=== PATIENT | female | born 1960 | race Caucasian/White ===

== ENCOUNTER 2019-06-17 10:26 | Inpatient (IN) ==
[2019-06-17 11:31] LABS: INR 1.04; PROTIME 13.7 Seconds (11.0-16.0)
[2019-06-17 12:00] LABS: BASO# 0.06 X1000 (0.0-0.2); BASO% 0.5 % (0.0-0.8); EOS# 0.15 X1000 (0.0-0.7); EOS% 1.3 % (0.0-10.0); HEMATOCRIT 20.1 % (37.0-47.0); HEMOGLOBIN 5.6 g/dL (12.0-16.0); IMM GRAN# 0.06 X1000 (0.0-0.04); IMM GRAN% 0.5 % (0.0-0.5); LYMPH# 1.23 X1000 (1.2-3.4); LYMPH% 10.9 % (20.5-51.1); MCH 24.3 PG (27-31); MCHC 27.9 g/dL (33-37); MCV 87.4 FL (81-99); MONO# 0.95 X1000 (0.11-0.59); MONO% 8.4 % (1.7-9.3); MPV 11.5 FL (7.4-10.4); NEUT# 8.85 X1000 (1.4-6.5); NEUT% 78.4 % (42.2-75.2); PLT 308 X1000 (130-400); RDW 18.4 % (11.5-14.5)
[2019-06-17 12:04] LABS: PTT HEPARIN PROTOCOL 23.4 Seconds
[2019-06-17 12:06] LABS: ALB/GLOB RATIO 1.3; ALBUMIN 3.9 g/dL (3.5-5.0); CALCIUM 10.2 mg/dL (8.8-10.2); CREATININE 1.8 mg/dL (0.5-0.9); POTASSIUM 4.4 mmol/L (3.5-5.1); TOTAL BILIRUBIN 0.27 mg/dL (0.20-1.00)
[2019-06-17 12:12] LABS: ANISOCYTOSIS 2+; BANDS 4 % (0-1); HYPOCHROM 1+; LARGE PLATELETS 1+; LYMPHS 8 % (21-51); MONO 4 % (1-9); NRBC 1 % (0-0); POIKILOCYTOSIS 1+; POLYCHROM 1+; SEGS 84 % (42-75)
[2019-06-17 12:17] LABS: URINE SOURCE CLEAN CATCH
[2019-06-17] MEDS ORDERED: NS 500 ML IV ONE (12:17)
[2019-06-17 12:20] LABS: BILIRUBIN URINE NEGATIVE (NEGATIVE); BLOOD URINE NEGATIVE (NEGATIVE); COLOR STRAW; GLUCOSE URINE NEGATIVE (NEGATIVE); KETONE URINE NEGATIVE (NEGATIVE); LEUKOCYTES URINE NEGATIVE (NEGATIVE); NITRITE URINE NEGATIVE (NEGATIVE); PROTEIN URINE NEGATIVE (NEGATIVE); SP GRAVITY URINE 1.006; TURBIDITY URINE CLEAR (CLEAR); UROBILINOGEN URINE NORMAL (NORMAL)
[2019-06-17 12:21] LABS: UR EPITHELIAL CELLS <10 /HPF (<10); URINE BACTERIA NEGATIVE /HPF; URINE RBC <10 /HPF (<10); URINE WBC <10 /HPF (<10)
--- NOTE | 2019-06-17 14:40 | PROVIDER DOCUMENTATION ---
This chart was entered by Yvette Kent Scribe, acting as scribe for Norberto Jacobs MD. HPI-Abdominal Pain/GI Problem - General Stated Complaint: gi bleed/diarrhea Time Seen by Provider: 06/17/19 10:35 Source: patient, EMS ([facility]) Allergies/Adverse Reactions: Patient Allergies Allergy/AdvReac Type Severity Reaction Status Date / Time No Known Allergies Allergy Verified 06/17/19 15:14 Home Medications: Home Medication List Medication Instructions Recorded Confirmed Last Taken Type Albuterol Sulfate [Proair Hfa] 1 - 2 puff INH Q6H PRN PRN 06/17/19 06/17/19 Unknown History Aspirin 325 mg PO DAILY 06/17/19 06/17/19 06/17/19 History Calcitriol 0.25 mg PO DAILY 06/17/19 06/17/19 06/17/19 History Cholecalciferol (Vit D3) [Vitamin 2,000 unit PO DAILY 06/17/19 06/17/19 06/17/19 History D] Furosemide [Lasix] 20 mg PO DAILY 06/17/19 06/17/19 06/17/19 History Metoprolol Succinate 150 mg PO DAILY 06/17/19 06/17/19 06/17/19 History Montelukast Sodium [Singulair] 10 mg PO DAILY 06/17/19 06/17/19 06/17/19 History Omeprazole 20 mg PO DAILY 06/17/19 06/17/19 06/17/19 History Potassium Chloride 10 meq PO DAILY 06/17/19 06/17/19 06/17/19 History Sennosides [Senna Laxative] 8.6 mg PO PRN PRN 06/17/19 06/17/19 06/17/19 History Simvastatin 20 mg PO HS 06/17/19 06/17/19 06/16/19 History - History of Present Illness-ABD Nature of Presenting Problems: 58 yof [facility] with c/o diarrhea and intermittent dark tarry stool acute onset 1 week. pt sts has no hx of GI bleed in the past and denies abd pain. pt is nontoxic in appearance and in no distress Quality of Pain: reports: none Severity in ED: reports: mild Onset/Duration: reports: 1 week ago Timing: reports: still present, intermittent Activities at Onset: reports: light activity Exposure to sick contacts?: No Modifying Factors: improves with: nothing. worse with: defecating Associated Symptoms: reports: diarrhea. denies: back/neck pain, chest pain, fever/chills, loss of appetite, nausea, shortness of breath, swelling/mass in abdomen, vomiting Last BM: this morning Dark Stools Present?: reports: black, tarry Rectal Bleeding: reports: blood mixed with stool # of Diarrhea Episodes: 2 Rectal Pain: reports: none # of Vomiting Episodes: 0 Emesis Description: reports: none Bruising or Bleeding Gums?: No Similar Symptoms Previously?: No Recently seen or treated by another doctor?: No Review of Systems - Adult - REVIEW OF SYSTEMS - ADULT Constitutional: denies: chills, fever Eyes: reports: no symptoms reported Ears, Nose, Mouth & Throat: reports: no symptoms reported Cardiovascular: denies: chest pain, palpitations Respiratory: denies: cough, shortness of breath, wheezing Gastrointestinal: reports: see HPI, diarrhea, rectal bleeding. denies: abdominal pain, nausea, vomiting Genitourinary: reports: no symptoms reported Musculoskeletal: denies: back pain, neck pain Integumentary: reports: no symptoms reported Neurological: reports: no symptoms reported Psychiatric: reports: no symptoms reported Endocrine: reports: no symptoms reported Hematologic/Lymphatic: reports: no symptoms reported Allergic/Immunologic: reports: no symptoms reported All Other Systems: Reviewed and Negative Past History - Adult - PAST MEDICAL HISTORY-ADULT Review of Records: reports: Old Records Reviewed, Nursing Assessment Review, Medications Reviewed, Social history reviewed & non-contributory. Major Childhood Illnesses: reports: denies history Cardiovascular: reports: HTN Respiratory: reports: denies history Gastrointestinal: reports: diverticulosis Obstetrical/Gynecological: reports: denies history Genitourinary: reports: denies history Musculoskeletal: reports: denies history Neurological: reports: denies history Psychiatric: reports: denies history Endocrine/Immune: reports: denies history Other Conditions: reports: denies history - PRIOR SURGERIES/PROCEDURES Surgical/Procedure History: reports: reviewed, not pertinent - IMMUNIZATION STATUS Childhood Immunizations: See Nurse Assessment Flu Vaccine: See Nurse Assessment - FAMILY HISTORY Family History: reviewed, not pertinent - SOCIAL HISTORY Smoking: denies Substance Use: denies Living Situation: care facility Physical Exam-General - PHYSICAL EXAM-ADULT Initial Vital Signs Reviewed: Yes - CONSTITUTIONAL General Appearance: appears well, alert, no apparent distress - EYES Eyes: PERRL/EOMI, pale conjunctivae - HEAD, EARS, NOSE, MOUTH & THROAT HENMT: moist mucous membranes - NECK Neck: non-tender, full range of motion, supple, normal inspection - RESPIRATORY Respiratory: chest non-tender, lungs clear, normal breath sounds - CARDIOVASCULAR Cardiovascular: normal peripheral pulses, regular rate, rhythm - CHEST (BREASTS) Chest/Breast: deferred - GASTROINTESTINAL (ABDOMEN) Abdominal Exam: normal bowel sounds, non tender, soft, no organomegaly, no pulsatile mass - GENITOURINARY Female Genitalia/Pelvic Exam: deferred Rectal Exam: normal rectal tone, black stool Hemoccult Exam: heme positive stool - LYMPHATIC Lymphatic: no adenopathy - MUSCULOSKELETAL Back Exam: normal inspection, no CVA tenderness, no vertebral tenderness Extremity: normal range of motion, non-tender, normal gait, normal inspection - SKIN Integumentary: normal turgor, warm/dry, pallor - NEUROLOGIC Neurologic: grossly normal - PSYCHIATRIC Psych/Mental Status: normal mood/affect, normal thought content, normal thought process, oriented x 3 Progress - PLAN OF CARE/RESULTS Progress/Plan/Lab Results: Orders Category Date Time Status CBC WITH ELECTRONIC DIFF [HEME] Stat Lab 06/17/19 10:37 Uncollected COMPREHENSIVE METABOLIC PANEL [CHEM] Stat Lab 06/17/19 10:37 Uncollected PT [PROTIME WITH INR] [COAG] Stat Lab 06/17/19 10:37 Uncollected PTT HEPARIN PROTOCOL [COAG] Stat Lab 06/17/19 10:37 Uncollected URINALYSIS W/POSS RFLX CULT [URINALYSIS] Stat Lab 06/17/19 10:37 Uncollected Result Diagrams: 06/17/19 11:03 06/17/19 11:03 - REASSESSMENT Reassessment #1 Time Reassessed: 12:12 ( at bedside speaking with pt) Status: unchanged Reassessment #2 Time Reassessed: 13:02 ( at bedside) Status: unchanged - CONSULTS/PCP/HOSPITALIST Notification #1 *Consult/PCP/Hospitalist*: hospitalist Time Discussed: 13:19 Consult Disposition: Will see in ED, Admit Departure - Departure Date of Disposition Decision: 06/17/19 Time of Disposition Decision: 14:38 DIAGNOSIS: Anemia, GI bleeding, Renal insufficiency Disposition: ADMITTED INPATIENT 09 Certified Medical Emergency: Emergent Condition: Fair - Critical Care Note This patient required my direct & personal management of CC.: Yes Total Time (mins): 38 Critical Care Statement: This patient required my direct personal management to treat or rule out processes, the absence of which, could potentiallly result in sudden, clinically significant life or limb threatening deterioration. Attestation - Physician/ JONH Attestation Patient care was provided by Advanced Practice Provider:: No The physician spent face to face time with patient:: Yes Advanced Practice Provider documentation review:: Supervising physician onsite and consulted in the evaluation and care of this patient. The physician did have a face to face encounter with the patient. This chart was documented by the indicated scribe, (Yvette Kent Scribe) and accurately reflects the services I performed and decisions made by me, Norberto Jacobs MD, as attested by the provider's signature.
[2019-06-17] MEDS ORDERED: ZOFRAN IV PRN (14:43)
[2019-06-17] MEDS ORDERED: TYLENOL PO PRN (14:43)
[2019-06-17] MEDS ORDERED: NS 500 ML ONE (14:57)
[2019-06-17 15:09] LABS: IRON SATURATION 7 %; TIBC 352 ug/dL; TOTAL IRON 24 ug/dL (49-151); UNBOUND IRON 328 ug/dL (112-346)
[2019-06-17 15:28] LABS: FERRITIN 75 ng/mL (13-150)
[2019-06-17] MEDS: SODIUM CHLORIDE 0.9% INJ SCH (17:56)
[2019-06-17] MEDS: PROTONIX IV SCH (17:56)
--- NOTE | 2019-06-17 19:06 | HISTORY AND PHYSICAL ---
PRIMARY CARE PHYSICIAN: None. CHIEF COMPLAINT: Dark tarry stools mixed with dark red blood, rectal bleeding. No energy, fatigue. This has been present for about a week and has progressively worsened. HISTORY OF PRESENTING ILLNESS: This is a 58-year-old female who presents to [facility] with complaints of diarrhea, dark tarry stools with dark red rectal bleeding mixed in with the stool over the past week. States she has had decreased energy and fatigue that has progressively worsened. Workup in the emergency room showed an hemoglobin and hematocrit of 5.6 and 20.1. It is noted that she is not on any anticoagulation or any blood lowering medications. She has not taken any NSAIDs or Goody powders according to the patient. Her stool for occult blood was positive in the emergency room, so she will receive 2 units of packed red blood cells and she will be admitted with GI consultation for further evaluation and treatment. PAST MEDICAL HISTORY: Hypertension, chronic kidney disease, and diverticulitis. PAST SURGICAL HISTORY: Of a hysterectomy, tonsillectomy and a parathyroidectomy. FAMILY HISTORY: Reviewed and noncontributory. SOCIAL HISTORY: She currently lives at the [facility]. Denies any tobacco, alcohol or illicit drug use. ALLERGIES: No known drug allergies. HOME MEDICATIONS: We will need to obtain a current list, reconcile, review and restart as appropriate. Placed an order for nursing to update and confirm home medications. LABORATORY DATA: Showed a white blood cell count of 11.30, hemoglobin 5.6, hematocrit 20.1, platelets 308,000. PT and INR of 13.7 and 1.04. Sodium 142, potassium 4.4 chloride 107, CO2 21, BUN of 31, creatinine 1.8. Her previous one in 2016 showed a creatinine of 1.6. So, she has some chronic kidney disease with a GFR of 29, glucose of 99. Urinalysis was negative. Stool for occult blood was positive. REVIEW OF SYSTEMS: She denied any fever, chills, blurred vision, dizziness. She has had no energy and fatigue denied any chest pain, coughing, shortness of breath. She has had dark tarry stools mixed with dark red rectal bleeding and diarrhea. Denied any constipation, abdominal pain, nausea, vomiting, or burning or hurting with urination. PHYSICAL EXAMINATION: On arrival she had a temperature of 97.9 degrees, pulse 102, respirations 20, blood pressure 128/82 saturating 99% on room air. GENERAL: This is a 58-year-old female lying in the bed and answers questions appropriately. HEENT: Normocephalic, atraumatic. Normal ENT inspection. Oropharynx and nares are clear. EYES: Pupils are equal, round, reactive to light and accommodation. Extraocular movements are intact. NECK: Normal inspection. Normal range of motion. LUNGS: Clear to auscultation bilaterally with equal lung expansion and chest wall movement. HEART: Regular rate and rhythm. No murmurs, rubs, or gallops. ABDOMEN: Soft, nontender, nondistended. Bowel sounds are present x4 quadrants. MUSCULOSKELETAL: She had 5/5 strength x4 extremities. NEUROLOGICAL: The cranial nerves 2-12 appear grossly intact. ASSESSMENT: 1. Gastrointestinal bleed. 2. Symptomatic anemia. 3. Hypertension. 4. Chronic kidney disease. PLAN: She will be admitted to the medical unit placed on telemetry. Sequential compression devices for deep vein thrombosis prophylaxis. Clear liquid diet. We will consult Gastroenterology. She is going to receive 2 units of packed red blood cells now. We will check iron studies. Place on Protonix 40 mg IV q.12, recheck CBC and BMP in the a.m. and further orders after seen by attending and by cyber security consultant. Dictated by MESERET Zheng for Lazarus Royal MD cc: MESERET Zheng agree with above. patient reports of generlized weakness, fatigue, hematochezia, and melena. profoundly anemic on presentation. likely a mix of acute and chronic blood loss anemia. checking iron levels. 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 GI consulted. will likely need EGD +/- colonoscopy. advise exercising caution with biopsies as NF1 patient's can bleed a fair bit with minor procedures. MTDD
[2019-06-18 08:16] LABS: CALCIUM 9.5 mg/dL (8.8-10.2); CREATININE 1.7 mg/dL (0.5-0.9); POTASSIUM 4.3 mmol/L (3.5-5.1)
[2019-06-18 08:19] LABS: BASO# 0.06 X1000 (0.0-0.2); BASO% 0.6 % (0.0-0.8); EOS# 0.22 X1000 (0.0-0.7); EOS% 2.1 % (0.0-10.0); HEMATOCRIT 32.1 % (37.0-47.0); HEMOGLOBIN 9.9 g/dL (12.0-16.0); IMM GRAN# 0.07 X1000 (0.0-0.04); IMM GRAN% 0.7 % (0.0-0.5); LYMPH# 0.89 X1000 (1.2-3.4); LYMPH% 8.5 % (20.5-51.1); MCH 26.5 PG (27-31); MCHC 30.8 g/dL (33-37); MCV 85.8 FL (81-99); MONO# 1.04 X1000 (0.11-0.59); MONO% 9.9 % (1.7-9.3); MPV 11.1 FL (7.4-10.4); NEUT% 78.2 % (42.2-75.2); PLT 255 X1000 (130-400); RBC 3.74 XMIL (4.2-5.4); RDW 16.4 % (11.5-14.5); WBC 10.48 X1000 (4.8-10.8)
[2019-06-18] MEDS: PROTONIX IV SCH ×2 (09:28→21:57)
[2019-06-18] MEDS: SODIUM CHLORIDE 0.9% INJ SCH (09:28)
[2019-06-18] MEDS: TOPROL XL PO SCH (14:25)
[2019-06-18] MEDS: SINGULAIR PO SCH (14:25)
--- NOTE | 2019-06-18 15:40 | GASTROENTEROLOGY CONSULTATION ---
DATE: 06/18/2019 REASON FOR CONSULT: GI bleed and anemia. HISTORY OF PRESENT ILLNESS: Ms. Vázquez is a 58-year-old female with a history of neurofibromatosis. The patient presented to the hospital last night complaining of blood in the stools, describing it as black and tarry. The patient mentioned that this has been going on for about 2 weeks. She has been complaining of nausea and vomiting for the last 3 days onwards. The patient also mentioned that after eating some meatball sub she felt like she was getting choked up. She has denied having any flu-like symptoms like chills, fever, or shortness of breath. She is a resident at [facility]. The patient mentioned that she has lost her appetite and has lost almost 13 pounds in 2 weeks. She feels weak, fatigued, and has lack of energy to do anything. Patient mentioned having constipation and takes stool softeners for bowel regimen.. The last bowel movement she had was on Saturday. The patient has a history of mitral valve prolapse, congenital heart disease, pulmonic stenosis, enlarged heart, neurofibromatosis, and hyperparathyroidism. She had her parathyroidectomy surgery in 2007. The patient mentioned that she has osteoporosis, had a fall in 2014 and used the walker to navigate around the house, but lately she is unable to walk around even with the walker.. 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 Her oncologist is Dr. Han. The patient does take aspirin on a daily basis and Tylenol occasionally. She mentioned having her colonoscopy done 6 to 7 years back in [place] and has a history of diverticulitis. The patient's hemoglobin and hematocrit on admission was 5.6 and 20.1. She has so far received 2 units of blood. Her H & today is 9.9 and 32.1. PAST MEDICAL HISTORY: Hypertension chronic kidney disease, diverticulitis, neurofibromatosis, mitral valve prolapse, congenital heart disease, pulmonic stenosis, enlarged heart, hyperparathyroidism, osteoporosis, acute kidney injury and leiomyosarcoma. PAST SURGICAL HISTORY: Total hysterectomy, leiomyosarcoma removed, tonsillectomy, parathyroidectomy and left hip surgery. ALLERGIES: No known drug allergies. SOCIAL HISTORY: The patient is single. She lives at the [facility]. The patient denied alcohol use, tobacco use, or illicit drug use. FAMILY HISTORY: Patient's mom had a hemorrhagic stroke. Dad had coronary artery disease, stroke, diabetes, and arthritis. HOME MEDICATIONS: Aspirin 325 mg daily, calcitriol 0.25 mg p.o. daily, vitamin D 5000 units, she takes 2000 units p.o. daily, furosemide 20 mg daily, metoprolol succinate 150 mg p.o. daily, singular 10 mg p.o. daily, sennoside 8.6 mg p.o. as needed, simvastatin 20 mg p.o. at bedtime, albuterol sulfate 8.5 mg 1 to 2 puffs every 6 hours as needed, and omeprazole 20 mg p.o. daily. REVIEW OF SYSTEMS: As per HPI. Otherwise, 12 point review of systems is negative. PHYSICAL EXAMINATION: Vital Signs: Temperature 98.0 degrees, pulse 104, respirations 22, blood pressure 154/88, oxygen saturation 95% on room air. The patient's weight is 135 pounds. BMI is 32.5 kg/m2. General: She is alert, oriented x3, and in no acute distress. Answering questions appropriately. HEENT: Pale conjunctivae. No icterus. PERRL. Neck: Supple. Lungs: Clear to auscultation to auscultation. Cardiovascular: The patient is tachycardic and tachypneic. Abdomen: Soft, distended, mildly tender. Active bowel sounds heard in all 4 quadrants. Extremities: No clubbing. No cyanosis. No edema. Pedal pulses 2+ present bilaterally. Patient has raised papules all over her body due to neurofibromatosis, Neurologic: She is alert, oriented x3. Nonfocal. Cranial nerves 2-12 grossly intact. LABORATORY DATA: WBCs are 10.48, RBCs 3.74, hemoglobin is 9.9, hematocrit is 32.1, platelet count is 255,000. Sodium 139, potassium 4.3, chloride 104, carbon dioxide 24, anion gap 11, BUN 32, creatinine is 1.7, glucose is 99, calcium is 9.5. Urinalysis was negative. IMPRESSIONS AND PLAN: 1. Gastrointestinal bleed. 2. Anemia. 3. Melena. 4. Chronic kidney disease. 5. Neurofibromatosis. PLAN: Ms. Vázquez is a 58-year-old female with a history of neurofibromatosis. GI has been consulted for her GI bleed and anemia. The patient's hemoglobin and hematocrit today is 9.9 and 32.1. It has trended upwards. She has received so far 2 units of blood. The patient is on Protonix 40 mg IV twice a day. She is on iron tablet and multivitamin. We plan to do an EGD tomorrow to rule out the cause of her bleeding. We have discussed the risks, benefits, and alternatives of the procedure to the patient and the family member. Patient and family acknowledged understanding of the plan of care. Further plan of care will based on the EGD findings. This plan was discussed with Dr. Villanueva. Thank you for your consult and please call us for any further questions or concerns. Dictated by MESERET Patterson for Salomón Villanueva MD cc: Salomón Villanueva MD I have seen and examined the patient myself and I agree with the above plan of care. Please call us with any further questions or concerns. [facility]
[2019-06-18] MEDS: NS 1,000 ML IV SCH (17:00)
--- NOTE | 2019-06-18 18:31 | PROGRESS NOTE ---
DATE: 06/18/2019 INTERVAL HISTORY: The patient with no further obvious bleeding. Appropriate increase with 2 units transfused yesterday. Reports some mild to moderate improvement in her weakness and fatigue. No new complaints. No further nausea or vomiting. REVIEW OF SYSTEMS: Twelve point review of systems negative except as per interval history. LABORATORY: WBC 10.4, hemoglobin 9.9, hematocrit 32.1, and platelets 55,000. Chemistry significant for bicarb 24, BUN 32, creatinine 1.7. Urinalysis unremarkable. OBJECTIVE: Vital Signs: T-max 98.2 degrees, pulse 104, respirations 22, blood pressure 154/88, and O2 saturation 95% on room air. General: No acute distress. HEENT: Normocephalic, atraumatic. Cardiovascular: Minimally tachycardic, but regular. No murmurs noted. Pulmonary: Clear to auscultation bilaterally. Abdomen: Soft, nontender, and nondistended. Bowel sounds positive. Extremities: Peripheral pulses intact. No clubbing, cyanosis, or edema. Neurologic: Cranial nerves grossly intact. Mild global weakness, but no focal deficits. Psychiatric: Normal mood and affect. Awake, alert, and oriented x3. Skin: Innumerable soft tissue tumors of variable size. ASSESSMENT AND PLAN: 1. GI bleed, likely acute on chronic blood-loss anemia. The patient with initial hemoglobin 5.6, appropriate increase after 2 units transfusion to 9.9. Exact baseline hemoglobin uncertain and the patient states she is usually anemic. She is on Protonix and GI involved, likely EGD tomorrow. Iron studies pending, but suspect she will be iron deficient. 2. 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 The patient with significant cutaneous involvement with numerous benign tumors most consistent with NF 1. May be contributing to her bleeding issues as trouble with bleeding. She has a strong correlation with NF 1. Monitor. 3. Likely CKD 3B. Exact baseline uncertain, but the one old creatinine I do have is 1.6, which is not far where she is. BUN is up a little so could have some aspect of acute kidney injury, so we will continue hydration, and see if it improves any further, but suspect this is essentially where she lives. 4. Hypertension, some mild to moderate elevations in her blood pressure off of her home Toprol and Lasix, but nothing that demands immediate attention. We will go ahead and restart her Toprol, but continue holding the Lasix for now given elevated kidney function with not entirely clear baseline. 5. Hyperlipidemia. Continue home statin.
[2019-06-18] MEDS: ICAR-C PO SCH (21:56)
[2019-06-18] MEDS: ZOCOR PO SCH (21:57)
[2019-06-19] MEDS: NS 1,000 ML IV SCH ×2 (06:50→21:03)
[2019-06-19] MEDS ORDERED: DIPRIVAN 1% ONE (07:25)
[2019-06-19] MEDS ORDERED: XYLOCAINE-MPF 2% ONE (07:25)
[2019-06-19] MEDS ORDERED: EPINEPHRINE SYRINGE ONE (09:01)
[2019-06-19] MEDS ORDERED: FENTANYL ONE (09:07)
--- NOTE | 2019-06-19 09:23 | ENDOSCOPY OPERATIVE NOTE ---
[facility] ENDOSCOPY OPERATIVE NOTE , EGD PROCEDURE REPORT EXAM DATE: 06/19/2019 PATIENT NAME: Jaclyn Vázquez MR#: [id number] BIRTHDATE: 1960 ATTENDING: Mauro Portillo MD STATUS: inpatient PHYSICS DEPARTMENT CHAIR: INDICATIONS: The patient is a 58 yr old female here for an EGD due to melena and anemia. PROCEDURE PERFORMED: EGD w/ control of bleeding MEDICATIONS: Per Anesthesia ESTIMATED BLOOD LOSS: None CONSENT: The patient understands the risks and benefits of the procedure and understands that these r isks include, but are not limited to: sedation, allergic reaction, infection, perforation and/or bleeding. Alternative means of evaluation and treatment include, among others: physical exam, x-rays, and/or surgical intervention. The patient elects to proceed with this endoscopic procedure. DESCRIPTION OF PROCEDURE: During pre-op preparation period all mechanical and medical equipment was c hecked for proper function. Hand hygiene and appropriate measures for infection prevention was taken. After the risks, benefits and alternatives of the procedure were thoroughly explained, Informed consent was verified, confirmed and timeout was successfully executed by the treatment team. The patient was anesthetized with topical anesthesia and the [id number] ([id number]) endoscope was introduced through the mouth and advanced to the second portion of the duoden um. Retroflexion was performed in the stomach and revealed a hiatal hernia. The gastroscope was then slowly withdrawn and removed. The patient's toleration of the procedure was excellent. ESOPHAGUS: The mucosa of the esophagus appeared normal. A 3 cm hiatal hernia was noted. The z-sidney e was noted at 38cm from the incisors. The z-line appeared normal. STOMACH: The stomach was normal. DUODENUM: A visible vessel with adherent clot with oozing of blood was found in the second portion of the duodenum. Site was injected in 4 quadrants with 4mL of epinephrine 1:10,000 and two endoclips were deployed wit h complete hemostasis achieved. A third endoclip was deployed, which did failed. There was no active bleeding at end of procedure. ADVERSE EVENTS: There were no complications. IMPRESSIONS: 1. The mucosa of the esophagus appeared normal 2. 3 cm hiatal hernia 3. The z-line was noted at 38cm from the incisors 4. The stomach was normal 5. A visible vessel with adherent clot with oozing of blood was found in the second portion of the d uodenum. Site was injected in 4 quadrants with 4mL of epinephrine 1:10,000 and two endoclips were deployed with complet e hemostasis achieved. A third endoclip was deployed, which did failed. There was no active bleeding at end of p rocedure RECOMMENDATIONS: 1. Clear liquid diet. If hgb is stable in AM, then can advance diet 2. Continue PPI IV BID 3. Trend H/H every 12 hours, transfuse prn goal hgb 7-8 4. Holding blood thinners 5. Will follow with you. Please call with questions REPEAT EXAM: Mauro Portillo MD eSigned: Mauro Portillo MD 06/19/2019 9:23 AM CC: CPT CODES: 11519 Upper gastrointestinal endoscopy including esophagus, stomach, and either the du odenum and/or jejunum as appropriate; with control of bleeding, any method ICD CODES: 578.1 Blood in stool 285.9 anemia,unspecified 553.3 Diaphragmatic hernia without mention of obstruction or gangrene 578.9 Hemorrhage of gastrointestinal tract,unspecified The ICD and CPT codes recommended by this software are interpretations from the data that the [facility] staff has captured with the software. The verification of the translation of this report to the ICD and CPT co moises and modifiers is the sole responsibility of the health care institution and practicing physician where this report was generated. [employer] will not be held responsible for the validity of the ICD and CPT codes i ncluded on this report. [facility] assumes no liability for data contained or not contained herein. CPT is a registered tra demark of the [employer]. PATIENT NAME: Jaclyn Vázquez MR#: [id number]
[2019-06-19] MEDS: PROTONIX IV SCH ×2 (10:31→21:00)
[2019-06-19] MEDS: SODIUM CHLORIDE 0.9% INJ SCH ×2 (10:32→21:03)
[2019-06-19] MEDS: TOPROL XL PO SCH (10:32)
[2019-06-19] MEDS: ICAR-C PO SCH ×2 (10:34→21:03)
[2019-06-19] MEDS: CENTRUM SILVER PO SCH (10:34)
[2019-06-19] MEDS: SINGULAIR PO SCH (10:34)
[2019-06-19 15:24] LABS: HEMATOCRIT 27.2 % (37.0-47.0); HEMOGLOBIN 8.1 g/dL (12.0-16.0); MCH 26.6 PG (27-31); MCHC 29.8 g/dL (33-37); MCV 89.5 FL (81-99); MPV 11.4 FL (7.4-10.4); RBC 3.04 XMIL (4.2-5.4); RDW 16.9 % (11.5-14.5); WBC 12.91 X1000 (4.8-10.8)
--- NOTE | 2019-06-19 18:32 | PROGRESS NOTE ---
DATE: 06/19/2019 INTERVAL HISTORY: The patient is status post EGD this morning showing significant ulcer with visible vessel with adherent clot that was actively oozing blood. It was injected and clipped which appeared to stop the bleeding. The patient continues to report generalized weakness, but no other complaints today. No other acute events. REVIEW OF SYSTEMS: Twelve point review of systems negative except as per interval history. LABORATORY: Labs pending. PHYSICAL EXAMINATION: Vital Signs: T-max 98.3 degrees, pulse 102, respirations 24, blood pressure 134/84 and O2 saturation 98% on room air. General: No acute distress. Vitals: As above. HEENT: Normocephalic, atraumatic. Moist mucous membranes. Cardiovascular: Regular rate and rhythm. No murmurs noted. Pulmonary: Clear to auscultation bilaterally. Abdomen: Soft. Still nontender. Nondistended. Bowel sounds positive. Extremities: Peripheral pulses intact. No clubbing, cyanosis, or edema. Neurologic: Cranial nerves grossly intact. Minimal global weakness but no focal deficits identified. Psychiatric: Normal mood and affect. Awake, alert, and oriented x3. Skin: Stable. Innumerable soft tissue tumors of highly variable size. ASSESSMENT AND PLAN: 1. Peptic ulcer disease, acute on chronic blood-loss anemia. Patient with anemia, hemoglobin 5.6. Appropriate increase to 2 unit transfusion to 9.9. Repeat pending. Status post EGD this morning showing visible vessel with adhered clot and oozing of blood which was clipped and injected. Continue to monitor hemoglobin and hematocrit. Continue Protonix and monitor closely. Iron studies suggestive of at least mild iron deficiency. We will likely discharge on oral iron. 2. Likely chronic kidney disease 3B. Exact baseline uncertain but appears to be pretty stable from the only other creatinine we have back in 2016. 3. 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 Patient with significant cutaneous involvement with numerous benign tumors most consistent with an F1. Bleeding issues do correlate with NF1. 4. Hypertension. Some occasional mild elevations, but overall reasonable control on her home Toprol. Continue to hold Lasix and monitor. 5. Hyperlipidemia. Continue home statin.
[2019-06-19] MEDS: ZOCOR PO SCH (21:03)
[2019-06-19] MEDS: PERIDEX MT SCH (21:04)
[2019-06-20 07:27] LABS: CALCIUM 8.6 mg/dL (8.8-10.2); CREATININE 1.4 mg/dL (0.5-0.9); POTASSIUM 4.5 mmol/L (3.5-5.1)
[2019-06-20 07:35] LABS: BASO# 0.03 X1000 (0.0-0.2); BASO% 0.3 % (0.0-0.8); EOS# 0.29 X1000 (0.0-0.7); EOS% 2.9 % (0.0-10.0); HEMATOCRIT 30.6 % (37.0-47.0); HEMOGLOBIN 8.8 g/dL (12.0-16.0); IMM GRAN# 0.07 X1000 (0.0-0.04); IMM GRAN% 0.7 % (0.0-0.5); LYMPH# 0.72 X1000 (1.2-3.4); LYMPH% 7.2 % (20.5-51.1); MCH 26.1 PG (27-31); MCHC 28.8 g/dL (33-37); MCV 90.8 FL (81-99); MONO# 0.94 X1000 (0.11-0.59); MONO% 9.4 % (1.7-9.3); MPV 11.5 FL (7.4-10.4); NEUT% 79.5 % (42.2-75.2); PLT 191 X1000 (130-400); RBC 3.37 XMIL (4.2-5.4); RDW 17.6 % (11.5-14.5); WBC 10.05 X1000 (4.8-10.8)
[2019-06-20 08:34] LABS: LYMPHS 6 % (21-51); MONO 10 % (1-9); SEGS 84 % (42-75)
[2019-06-20 08:35] LABS: ANISOCYTOSIS 1+; HYPOCHROM 1+
[2019-06-20] MEDS: SINGULAIR PO SCH (09:11)
[2019-06-20] MEDS: ICAR-C PO SCH ×2 (09:11→20:49)
[2019-06-20] MEDS: CENTRUM SILVER PO SCH (09:11)
[2019-06-20] MEDS: SODIUM CHLORIDE 0.9% INJ SCH ×2 (09:11→20:49)
[2019-06-20] MEDS: PERIDEX MT SCH ×2 (09:11→20:50)
[2019-06-20] MEDS: PROTONIX IV SCH ×2 (09:11→20:49)
[2019-06-20] MEDS: TOPROL XL PO SCH (09:11)
--- NOTE | 2019-06-20 18:18 | PROGRESS NOTE ---
DATE: 06/20/2019 INTERVAL HISTORY: No acute events overnight. SUBJECTIVE: Ms. Vázquez denies any new complaints. She denies any chest pain, shortness of breath, nausea, vomiting or abdominal pain. She has not had any bowel movement. We discussed about monitoring her hemoglobin, continuing intravenous Protonix for 24 hours postprocedure, and changing it to oral Protonix tomorrow. I answered all of her questions. I counseled her about not taking any NSAID including ibuprofen, naproxen or Aleve, and she understood it. OBJECTIVE: Vital signs: Temperature 98.6 degrees, pulse 103, respiratory rate 18, blood pressure 130/76, saturating 97% on room air. On physical examination, she has neurofibromatosis. Oral cavity is moist. Air entry bilaterally equal. No wheeze, rhonchi or crackles. S1, S2 normal. No murmur, rub or gallop. Abdomen is soft, nontender. No lower extremity edema. She is alert and oriented x3. LABORATORY DATA: Labs suggestive of hemoglobin of 8.8, platelets of 191,000. She does have a BUN of 18 and creatinine of 1.4, likely in the setting of what appears to be chronic kidney dysfunction, probably. DIAGNOSTIC DATA: No new imaging. ASSESSMENT AND PLAN: 1. Peptic ulcer disease affecting second portion of duodenum, leading to acute blood loss anemia requiring 2 units of packed red blood cells. Status post esophagogastroduodenoscopy on 06/19 with injection of epinephrine and hemoclip application. Monitor hemoglobin, continue iron supplementation, intravenous Protonix. Plan is to change her Protonix to oral in next 24 hours. She should avoid nonsteroidal anti-inflammatory drugs. 2. Kidney dysfunction. She did have decreased GFR in chronic kidney disease stage 3 range in 2016. I will stop intravenous fluids and monitor BMP. She should have outpatient regular physician followup. 3. History of neurofibromatosis, essential hypertension and hyperlipidemia. Continue home metoprolol and simvastatin. 4. Disposition: I will advance the patient's diet to full liquid. If she is able to tolerate it well and hemoglobin is stable, my plan is to discharge her in the next 24 hours if gastroenterology team agrees. Plan of care discussed with the patient. She is in agreement with the plan. All of her questions have been answered. cc: Norbert Lima MD
--- NOTE | 2019-06-20 20:15 | GASTROENTEROLOGY PROGRESS NOTE ---
DATE: 06/20/2019 SUBJECTIVE: Patient is resting in bed. She is feeling better. She denies any nausea, vomiting, vomiting blood, passing blood in the stools. OBJECTIVE: Vital signs: Temperature 97.9 degrees, pulse of 97, respiratory rate 18, blood pressure 133/82, saturating 98% room air. Body weight of 135 pounds, BMI of 32.5 kg/m2 moderate, lying in bed, in no acute distress. HEENT: Pale conjunctivae. No icterus. Pupils equal, reactive to light. Neck: Supple. Abdomen: Soft, nontender, nondistended. No guarding or rebound. Extremities: No cyanosis, clubbing. Neuro: Alert, awake, oriented. LABS: Hemoglobin and hematocrit is 8.8 and 30.6, white count of 10.05, platelet count of 191.4, sodium 141, potassium 4.5, chloride 113, bicarb of 18, anion gap 10, BUN of 18, creatinine 1.4, glucose of 96, calcium is 8.6. IMPRESSION AND PLAN: 1. Gastrointestinal bleed with bleeding lesion noted in the duodenum which was injected and a hemoclip with Dr. Portillo. Also currently hematocrit stable, is improving. 2. Chronic kidney disease stage IIIB. 3. Neurofibromatosis type 1. 4. Hypertension. 5. Hyperlipidemia. RECOMMENDATIONS: At this point, we will continue the patient on clear liquid diet. We will start on Iron C b.i.d., multivitamin daily. We will keep her on Protonix twice daily. She is on gentle IV fluids. Since the patient's hematocrit is improving, we will advance the diet to full liquid diet tomorrow. The patient will continue to advance the diet as tolerated. The patient will follow with Dr. Portillo in one week after discharge. The patient will probably need a repeat EGD in 3 months to document healing of this lesion. The above plans were discussed with the patient. All questions answered. Please call with any further questions. We will sign off at this time. We will be available for any questions. cc: MD Dr. Clarence High
[2019-06-20] MEDS: ZOCOR PO SCH (20:50)
[2019-06-20] MEDS: NS 1,000 ML IV SCH (22:28)
[2019-06-21 08:13] LABS: BASO# 0.02 X1000 (0.0-0.2); BASO% 0.3 % (0.0-0.8); EOS# 0.24 X1000 (0.0-0.7); HEMATOCRIT 28.6 % (37.0-47.0); HEMOGLOBIN 8.2 g/dL (12.0-16.0); IMM GRAN# 0.02 X1000 (0.0-0.04); IMM GRAN% 0.3 % (0.0-0.5); LYMPH# 0.55 X1000 (1.2-3.4); LYMPH% 6.9 % (20.5-51.1); MCH 26.3 PG (27-31); MCHC 28.7 g/dL (33-37); MCV 91.7 FL (81-99); MONO# 0.72 X1000 (0.11-0.59); MPV 11.5 FL (7.4-10.4); NEUT# 6.41 X1000 (1.4-6.5); NEUT% 80.5 % (42.2-75.2); PLT 208 X1000 (130-400); RBC 3.12 XMIL (4.2-5.4); RDW 17.9 % (11.5-14.5); WBC 7.96 X1000 (4.8-10.8)
[2019-06-21 08:16] LABS: CALCIUM 8.6 mg/dL (8.8-10.2); CREATININE 1.3 mg/dL (0.5-0.9); POTASSIUM 4.1 mmol/L (3.5-5.1)
[2019-06-21] MEDS ORDERED: LASIX PO ONE (09:20)
[2019-06-21] MEDS: CENTRUM SILVER PO SCH (09:52)
[2019-06-21] MEDS: PROTONIX IV SCH (09:52)
[2019-06-21] MEDS: SODIUM CHLORIDE 0.9% INJ SCH (09:52)
[2019-06-21] MEDS: PERIDEX MT SCH (09:53)
[2019-06-21] MEDS: ICAR-C PO SCH (09:53)
[2019-06-21] MEDS: SINGULAIR PO SCH (09:53)
[2019-06-21] MEDS: TOPROL XL PO SCH (09:53)
--- NOTE | 2019-06-21 11:40 | DISCHARGE SUMMARY ---
ADMISSION DATE: 06/17/2019 DISCHARGE DATE: 06/21/2019 DISCHARGE DISPOSITION: Back to assisted living facility. DISCHARGE CONDITION: Hemodynamically stable. Her intravenous fluids had been stopped on June 20. However, when I visited her in her room, she still had intravenous fluids going on so I had informed the nurse to stop it immediately and I also gave her a dose of oral Lasix considering crackles on examination but the patient denied any chest pain or significant shortness of breath. She did have black tarry bowel movements which are likely related to old blood. Her hemoglobin has been stable. DISCHARGE DIAGNOSES: 1. Peptic ulcer disease. 2. Clean-based ulcer with visible blood vessels in the second part of duodenum. 3. Acute blood loss anemia due to upper gastrointestinal bleed. 4. Likely chronic kidney dysfunction in stage 3. OTHER DIAGNOSES: 1. Symptomatic anemia. 2. Essential hypertension. 3. Chronic kidney disease. 4. History of diverticulitis. 5. History of neurofibromatosis. DISCHARGE MEDICATIONS: 1. Calcitriol 0.25 mg daily. 2. Furosemide 20 mg daily. 3. Metoprolol succinate 150 mg daily. 4. Albuterol sulfate 1 to 2 puffs inhaled every 6 hours as needed for shortness of breath. 5. Senna 8.6 mg as needed for constipation. 6. Simvastatin 20 mg at nighttime. 7. Montelukast 10 mg daily. 8. Vitamin D3 with 2000 units daily. 9. Multivitamin 1 tablet daily. 10. Iron, carbonyl, ascorbic acid 1 tablet b.i.d. (90 tablets have been prescribed). 11. Omeprazole 40 mg b.i.d. (90 capsules have been prescribed) to take twice daily until 08/05/2019 and then start taking once daily. VITALS: At the time of discharge, temperature 98.1 degrees, pulse 106, respiratory rate 16, blood pressure 157/100, saturating 98% on room air. PHYSICAL EXAMINATION: Not in acute distress. Oral cavity is moist. Lungs: Air entry bilaterally equal. No wheeze or rhonchi. Mild crackles, especially left infrascapular region. Cardiovascular: S1, S2 normal. No murmur, rub, or gallop. Appears regular. Mildly tachycardic. Abdomen: Soft, nontender. No lower extremity edema. She is alert and oriented x3. She does not have any pallor affecting conjunctivae or oral cavity. Input and output suggest she had a bowel movement, black tarry overnight. It is likely related to old blood. LABS: Suggestive of WBC 7.9, hemoglobin 8.2, platelets 208,000. Sodium of 147, chloride of 117, BUN 12, creatinine 1.3. MICROBIOLOGY: Stool occult blood test was positive. SIGNIFICANT IMAGING: No new imaging. SIGNIFICANT PROCEDURES: The patient underwent EGD on 06/19/2018 which had detected a visible vessel with adherent clot with oozing of blood in the second portion of the duodenum where epinephrine was injected and hemoclips were applied, and with hemostasis being achieved. HOSPITAL COURSE SUMMARY: Ms. Vázquez is a 58-year-old, lady with the above-mentioned past medical history, who came in with chief complaints of dark tarry stool with occasional dark red blood of about 7 days' duration. She also had decreased energy and fatigue which was progressively getting worse. In the emergency room, she was found to have hemoglobin of 5.6. She was not taking any anticoagulation or any [id number] NSAIDs except aspirin which was held at the time of admission. She received 2 units of blood transfusion following which her hemoglobin improved and she underwent EGD which had detected a clean-based duodenal ulcer in the second portion with visible blood vessels where epinephrine was injected and hemostasis was achieved after application of hemoclips, which she tolerated well. After the procedure, she was continued on intravenous pantoprazole every 12 hours and was started on iron, multivitamin tablets, and she was tolerating liquid diet well so it was decided to discharge her on oral Protonix, iron with multivitamins, and have an outpatient GI followup. Her aspirin was held at the time of discharge. TIME SPENT: More than 30 minutes of time were spent in discharging this patient. Plan of care was extensively discussed with her. All of her questions were satisfactorily answered. cc: Norbert Lima MD
[2019-06-21 12:44] VITALS: BP 150/82
== END 2019-06-21 13:23 | DRG 378 ==
LOC: ED 10:26 → EDIPHOLD 14:00 → SUATTDRO 14:00 → 4N 21:32
PROVIDERS: ATTEND Internal Medicine
PROC: EN.HEAT (2019-06-19 08:54)

== ENCOUNTER 2019-07-04 10:17 | Inpatient (IN) ==
[2019-07-04] MEDS ORDERED: ZOFRAN IV ONE (11:27)
[2019-07-04] MEDS ORDERED: SODIUM CHLORIDE 0.9% INJ ONE (11:27)
[2019-07-04] MEDS ORDERED: MORPHINE IV ONE (11:27)
[2019-07-04] MEDS ORDERED: PROTONIX IV ONE (11:27)
[2019-07-04] MEDS ORDERED: NS 1,000 ML IV ONE (11:27)
[2019-07-04] MEDS ORDERED: ZOSYN 4.5 GM in NS 100 ML IV ONE (11:29)
[2019-07-04 12:18] LABS: INR 0.98
[2019-07-04 12:19] LABS: PTT 33.1 Seconds (22.3-41.8)
--- NOTE | 2019-07-04 12:22 | Diag Imaging Result Doc PS360 ---
EXAM: CHEST-PORTABLE INDICATION: GI bleed TECHNIQUE: One view COMPARISON: None. FINDINGS: There are increased interstitial markings throughout both lungs that are fairly coarse. This likely represents mild fibrosis. There is no discrete pleural fluid collection or pneumothorax. The cardiomediastinal silhouette and central vasculature are grossly unremarkable. IMPRESSION: Coarse interstitial thickening bilaterally that probably represents mild fibrotic change. No other definite acute pathology by plain radiograph. Electronically signed by Manuel Solis 07/04/2019 12:20 PM
[2019-07-04 12:23] LABS: ALB/GLOB RATIO 1.2; ALBUMIN 3.4 g/dL (3.5-5.0); CALCIUM 9.4 mg/dL (8.8-10.2); CREATININE 2.1 mg/dL (0.5-0.9); POTASSIUM 4.5 mmol/L (3.5-5.1); TOTAL BILIRUBIN 0.49 mg/dL (0.20-1.00); TOTAL PROTEIN 6.2 g/dL (6.3-8.3)
[2019-07-04 12:24] LABS: BASO# 0.04 X1000 (0.0-0.2); BASO% 0.3 % (0.0-0.8); EOS# 0.14 X1000 (0.0-0.7); EOS% 0.9 % (0.0-10.0); HEMOGLOBIN 7.4 g/dL (12.0-16.0); IMM GRAN# 0.09 X1000 (0.0-0.04); IMM GRAN% 0.6 % (0.0-0.5); LYMPH# 0.75 X1000 (1.2-3.4); MCHC 27.4 g/dL (33-37); MCV 91.2 FL (81-99); MONO# 1.26 X1000 (0.11-0.59); MONO% 8.4 % (1.7-9.3); MPV 10.4 FL (7.4-10.4); NEUT# 12.67 X1000 (1.4-6.5); NEUT% 84.8 % (42.2-75.2); PLT 392 X1000 (130-400); RBC 2.96 XMIL (4.2-5.4); RDW 17.9 % (11.5-14.5); WBC 14.95 X1000 (4.8-10.8)
[2019-07-04] MEDS ORDERED: TYLENOL PO ONE (12:50)
[2019-07-04] MEDS ORDERED: NS 500 ML IV ONE (12:50)
[2019-07-04] MEDS ORDERED: LASIX IV ONE (12:50)
[2019-07-04] MEDS ORDERED: BENADRYL IV ONE (12:50)
--- NOTE | 2019-07-04 14:34 | Diag Imaging Result Doc PS360 ---
EXAM: CT ABDOMEN/PELVIS W/O CONTRAST INDICATION: abd pain, acute kidney injury TECHNIQUE: This exam was performed using automated exposure control, adjustment of mA or kV according to patient size, and/or use of iterative reconstruction technique. COMPARISON: None. FINDINGS: There are numerous small nodules scattered throughout both lung bases that are highly suspicious for metastatic foci. For reference, one of the larger nodules in the lingula near the lung base anteriorly measures up to 1.8 cm axially. There is a small left pleural effusion and mild atelectasis at the lung bases. There is a questionable very vague 1 cm hypodense focus at the dome of the liver on image 22 of series 3 that is indeterminate with no IV contrast. There is a cyst density lesion in the left hepatic lobe near the [place] hepatis. The liver is unremarkable as imaged with unenhanced CT, otherwise. The gallbladder, pancreas, and spleen are unremarkable. There is a heterogeneous masslike lesion at the upper pole of the right kidney measuring up to 3.9 x 3.2 cm axially. It is indeterminate with no IV contrast but it is suspicious for neoplasm. There is no hydronephrosis. There are vague hyperdense renal. Bilaterally suggesting Javi's plaques. The urinary bladder is partially distended. The urinary bladder wall is thickened. Some of this may be due to underdistention. Correlate clinically to exclude a component of cystitis. There has been a prior hysterectomy. The appendix is normal. There is fairly mild uncomplicated diverticulosis coli. There is no evidence of focal bowel wall thickening or bowel obstruction. The stomach is grossly unremarkable. In the duodenum, there is a hyperdense oblong structure that appears to represent an ingested foreign body. It could represent a hyperdense pill there is some mild streak artifact associated with it suggesting that it could be metallic. It is not causing obstruction. No focal inflammatory changes, free abdominal gas, or free fluid is identified in the abdomen or pelvis. No abdominal or pelvic lymphadenopathy is appreciated. There are innumerable lytic lesions as well as sclerosis associated with the pelvis, hips, sacrum, spine, and ribs. This is highly suspicious for diffuse bony metastases from an unknown primary. There are mild height loss associated with virtually every lumbar and lower thoracic spine vertebral body of unknown acuity but appear chronic. IMPRESSION: 1.Innumerable small parenchymal nodules at both lung bases highly suspicious for metastatic disease from an unknown primary. 2.Small left effusion and bibasilar atelectasis. 3.Heterogeneous mass at the upper pole of the right kidney that is suspicious for neoplasm but is indeterminate with no IV contrast. 4.Questionable very vague low dense lesion near the dome of the liver. 5.Thickened urinary bladder wall that is in part due to underdistention. Correlate clinically to exclude a component of cystitis. 6.Apparent ingested foreign body in the duodenum that may be metallic. There is no evidence of obstruction. Please see above discussion. 7.Findings consistent with diffuse mixed lytic and sclerotic metastatic disease throughout the visualized skeleton. Electronically signed by Manuel Solis 07/04/2019 2:31 PM
--- NOTE | 2019-07-04 15:50 | PROVIDER DOCUMENTATION ---
This chart was entered by Susanne Shen Scribe, acting as scribe for Antonino Rutledge MD. HPI-Abdominal Pain/GI Problem - General Chief Complaint: Abnormal Lab[s] Stated Complaint: ABNORMAL LABS Time Seen by Provider: 07/04/19 11:13 Source: patient Allergies/Adverse Reactions: Patient Allergies Allergy/AdvReac Type Severity Reaction Status Date / Time No Known Allergies Allergy Verified 06/17/19 15:14 Home Medications: Home Medication List Medication Instructions Recorded Confirmed Last Taken Type Albuterol Sulfate [Proair Hfa] 1 - 2 puff INH Q6H PRN PRN 06/17/19 06/17/19 Unknown History Calcitriol 0.25 mg PO DAILY 06/17/19 06/17/19 06/17/19 History Cholecalciferol (Vit D3) [Vitamin 2,000 unit PO DAILY 06/17/19 06/17/19 06/17/19 History D] Furosemide [Lasix] 20 mg PO DAILY 06/17/19 06/17/19 06/17/19 History Metoprolol Succinate 150 mg PO DAILY 06/17/19 06/17/19 06/17/19 History Montelukast Sodium [Singulair] 10 mg PO DAILY 06/17/19 06/17/19 06/17/19 History Sennosides [Senna Laxative] 8.6 mg PO PRN PRN 06/17/19 06/17/19 06/17/19 History Simvastatin 20 mg PO HS 06/17/19 06/17/19 06/16/19 History Iron Carbonyl/Ascorbic Acid 1 ea PO BID #90 tab 06/21/19 Unknown Rx [Icar-C] Multivitamins/Minerals [Centrum 1 ea PO DAILY #90 tab 06/21/19 Unknown Rx Silver] Omeprazole 40 mg PO BID #90 [place]. 06/21/19 Unknown Rx - History of Present Illness-ABD Nature of Presenting Problems: Patient is a 58 y/o female presenting to the ED today c/o GI bleeding. Patient reports she was admitted and had an EGD with endoclipping done approximately 2 weeks ago after she was discovered to have a GI bleed. Patient reports since then she has continued to experience weakness and has noted "gobs of blood" in stool. Patient denies N/V/D but c/o abdominal pain. 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 Patient was sent from assisted living facility where she is residing after her H&H were low. Patient denies all other signs/symptoms. Abdominal Pain Onset Location: reports: epigastric Timing: reports: still present Associated Symptoms: reports: weakness, other (abdominal pain, blood in stool) Last BM: this morning Dark Stools Present?: reports: black, tarry # of Diarrhea Episodes: 0 # of Vomiting Episodes: 0 Emesis Description: reports: none Bruising or Bleeding Gums?: No Similar Symptoms Previously?: Yes Recently seen or treated by another doctor?: Yes (seen 2 weeks ago for GI bleed and admitted) Review of Systems - Adult - REVIEW OF SYSTEMS - ADULT Constitutional: denies: chills, fever Eyes: reports: no symptoms reported Ears, Nose, Mouth & Throat: reports: no symptoms reported Cardiovascular: denies: chest pain Respiratory: denies: chronic cough, shortness of breath Gastrointestinal: reports: abdominal pain, other (blood in stool). denies: hematemesis, diarrhea, nausea, vomiting Genitourinary: reports: no symptoms reported Musculoskeletal: reports: no symptoms reported Integumentary: reports: no symptoms reported Neurological: reports: no symptoms reported Psychiatric: reports: no symptoms reported Endocrine: reports: no symptoms reported Hematologic/Lymphatic: reports: no symptoms reported Allergic/Immunologic: reports: no symptoms reported All Other Systems: Reviewed and Negative Past History - Adult - PAST MEDICAL HISTORY-ADULT Review of Records: reports: Old Records Reviewed, Nursing Assessment Review, Medications Reviewed, Social history reviewed & non-contributory. Physical Exam-General - PHYSICAL EXAM-ADULT Initial Vital Signs Reviewed: Yes (tachycardic) - CONSTITUTIONAL General Appearance: appears well, alert, no apparent distress - EYES Eyes: PERRL/EOMI, pale conjunctivae - HEAD, EARS, NOSE, MOUTH & THROAT HENMT: normocephalic/atraumatic, other (dry mucous membranes) - NECK Neck: full range of motion, normal inspection - RESPIRATORY Respiratory: lungs clear, normal breath sounds, no respiratory distress, no accessory muscle use - CARDIOVASCULAR Cardiovascular: no edema, tachycardia - GASTROINTESTINAL (ABDOMEN) Abdominal Exam: normal bowel sounds, soft, tenderness (diffuse, predominantly epigastric) - GENITOURINARY Rectal Exam: normal rectal tone, black stool. negative: hemorrhoids, mass Hemoccult Exam: heme positive stool - LYMPHATIC Lymphatic: no adenopathy - MUSCULOSKELETAL Back Exam: normal inspection Extremity: normal range of motion, normal gait, normal inspection - SKIN Integumentary: normal color, normal turgor, warm/dry, other (neurofibromas scattered across skin, large neurofibroma measuring 4 cm x 8 cm on right wrist) - NEUROLOGIC Neurologic: grossly normal, no motor/sensory deficits - PSYCHIATRIC Psych/Mental Status: normal mood/affect, normal thought content, normal thought process Progress - PLAN OF CARE/RESULTS Progress/Plan/Lab Results: Vital Signs - 8 hr 07/04/19 10:34 Temperature 98.9 F Pulse Rate 122 H Respiratory Rate 16 Blood Pressure 133/84 O2 Sat by Pulse Oximetry 94 L Orders Category Date Time Status CHEST-PORTABLE [RAD] Stat Exams 07/04/19 11:[address] ABD/PELVIS W/IV CONT ONLY [CT] Stat Exams 07/04/19 11:26 Ordered CBC WITH ELECTRONIC DIFF [HEME] Stat Lab 07/04/19 10:42 Uncollected CMP [COMPREHENSIVE METABOLIC PANEL] [CHEM] Stat Lab 07/04/19 10:42 Uncollected OCCULT BLOOD SCREENING [STOOL] Stat Lab 07/04/19 11:26 Uncollected PROTIME WITH INR [COAG] Stat Lab 07/04/19 11:26 Uncollected PTT [COAG] Stat Lab 07/04/19 11:26 Uncollected TYPE & SCREEN [BBK] Stat Lab 07/04/19 11:26 Uncollected 0.9% Sodium Chloride Inj [Ns] 1,000 ml Med 07/04/19 11:27 Active IV 999 mls/hr Morphine Med 07/04/19 11:27 Discontinued 2 mg IV NOW ONE Ondansetron [Zofran] Med 07/04/19 11:27 Discontinued 4 mg IV NOW ONE Pantoprazole [Protonix] Med 07/04/19 11:27 Discontinued 40 mg IV NOW ONE Sodium Chloride 0.9% Med 07/04/19 11:27 Discontinued 10 ml INJ NOW ONE GI Bleed (possible) Stat Oth 07/04/19 11:25 Ordered Result Diagrams: 07/04/19 11:52 07/04/19 11:52 - REASSESSMENT Reassessment #1 Time Reassessed: 15:40 Status: improving (Given IVF and zosyn as she meets criteria for sepsis. Given IV protonix and placed on protonix drip. 2u of pRBCs has been ordered. Old chart reviewed. Creatinine has risen acutely as well. Will need admission) - XRAY 1 XRAY Study: Chest Impression: See EMR Report (EXAM: CHEST-PORTABLE INDICATION: GI bleed TECHN IQUE: One view COMPARISON: None. FINDINGS: There are increased interstitial markings throughout both lungs that are fairly coarse. This likely represents mild fibrosis. There is no discrete pleural fluid collection or pneumothorax. The cardiomediastinal silhouette and central vasculature are grossly unremarkable. IMPRESSION: Coarse interstitial thickening bilaterally that probably represents mild fibrotic change. No other definite acute pathology by plain radiograph. Electronically signed by Manuel Solis 07/04/2019 12:20 PM 07/04/19 1220 Interpreting Physician: Manuel Solis MD Dictated Date/Time: 07/04/19 1218 cc: Antonino Rutledge MD; None,PCP) - CT/MRI 1 CT Study: Abdomen Impression: See EMR Report (EXAM: CT ABDOMEN/PELVIS W/O CONTRAST INDICATION: abd pain, acute kidney injury TECHNIQUE: This exam was performed using automated exposure control, adjustment of mA or kV according to patient size, and/or use of iterative reconstruction technique. COMPARISON: None. FINDINGS: There are numerous small nodules scattered throughout both lung bases that are highly suspicious for metastatic foci. For reference, one of the larger nodules in the lingula near the lung base anteriorly measures up to 1.8 cm axially. There is a small left pleural effusion and mild atelectasis at the lung bases. There is a questionable very vague 1 cm hypodense focus at the dome of the liver on image 22 of series 3 that is indeterminate with no IV contrast. There is a cyst density lesion in the left hepatic lobe near the [place] hepatis. The liver is unremarkable as imaged with unenhanced CT, otherwise. The gallbladder, pancreas, and spleen are unremarkable. There is a heterogeneous masslike lesion at the upper pole of the right kidney measuring up to 3.9 x 3.2 cm axially. It is indeterminate with no IV contrast but it is suspicious for neoplasm. There is no hydronephrosis. There are vague hyperdense renal. Bilaterally suggesting Javi's plaques. The urinary bladder is partially distended. The urinary bladder wall is thickened. Some of this may be due to underdistention. Correlate clinically to exclude a component of cystitis. There has been a prior hysterectomy. The appendix is normal. There is fairly mild uncomplicated diverticulosis coli. There is no evidence of focal bowel wall thi ckening or bowel obstruction. The stomach is grossly unremarkable. In the duodenum, there is a hyperdense oblong structure that appears to represent an ingested foreign body. It could represent a hyperdense pill there is some mild streak artifact associated with it suggesting that it could be metallic. It is not causing obstruction. No focal inflammatory changes, free abdominal gas, or free fluid is identified in the abdomen or pelvis. No abdominal or pelvic lymphadenopathy is appreciated. There are innumerable lytic lesions as well as sclerosis associated with the pelvis, hips, sacrum, spine, and ribs. This is highly suspicious for diffuse bony metastases from an unknown primary. There are mild height loss associated with virtually every lumbar and lower thoracic spine vertebral body of unknown acuity but appear chronic. IMPRESSION: 1.Innumerable small parenchymal nodules at both lung bases highly suspicious for metastatic disease from an unknown primary. 2.Small left effusion and bibasilar atelectasis. 3.Heterogeneous mass at the upper pole of the right kidney that is suspicious for neoplasm but is indeterminate with no IV contrast. 4.Questionable very vague low dense lesion near the dome of the liver. 5.Thickened urinary bladder wall that is in part due to underdistention. Correlate clinically to exclude a component of cystitis. 6.Apparent ingested foreign body in the duodenum that may be metallic. There is no evidence of obstruction. Please see above discussion. 7.Findings consistent with diffuse mixed lytic and sclerotic metastatic disease throughout the visualized skeleton. Electronically signed by Manuel Solis 07/04/2019 2:31 PM 07/04/19 1431 Interpreting Physician: Manuel Solis MD Dictated Date/Time: 07/04/19 1407 cc: Antonino Rutledge MD; None,PCP) - CONSULTS/PCP/HOSPITALIST Notification #1 *Consult/PCP/Hospitalist*: carolina Ferrera paged at [phone] #[phone] Consult: Dr. Mehta paged at [phone] Time Discussed: 15:44 Consult Disposition: other (will see inpatient) Departure - Departure Date of Disposition Decision: 07/04/19 Time of Disposition Decision: 15:43 DIAGNOSIS: Acute kidney injury (nontraumatic), Neurofibromatosis syndrome GI bleeding Qualifiers: GI bleed type/associated pathology: duodenal ulcer Qualified Code(s): K26.4 - Chronic or unspecified duodenal ulcer with hemorrhage Anemia Qualifiers: Anemia type: iron deficiency Iron deficiency anemia type: chronic blood loss Qualified Code(s): D50.0 - Iron deficiency anemia secondary to blood loss (chronic) Sepsis without acute organ dysfunction Qualifiers: Sepsis type: sepsis due to unspecified organism Qualified Code(s): A41.9 - Sepsis, unspecified organism Disposition: ADMITTED INPATIENT 09 Certified Medical Emergency: Emergent Condition: Serious Referrals and Follow-Ups: None,PCP [Primary Care Provider] - - Critical Care Note This patient required my direct & personal management of CC.: Yes Total Time (mins): 40 Critical Care Statement: This patient required my direct personal management to treat or rule out processes, the absence of which, could potentiallly result in sudden, clinically significant life or limb threatening deterioration. Attestation - Physician/ JONH Attestation Patient care was provided by Advanced Practice Provider:: No The physician spent face to face time with patient:: Yes Advanced Practice Provider documentation review:: Supervising physician onsite and consulted in the evaluation and care of this patient. The physician did have a face to face encounter with the patient. This chart was documented by the indicated scribe, (Susanne Shen Scribe) and accurately reflects the services I performed and decisions made by me, Antonino Rutledge MD, as attested by the provider's signature.
[2019-07-04] MEDS ORDERED: PROTONIX 80 MG in NS 80 ML IV ONE (16:00)
[2019-07-04] MEDS ORDERED: DIPRIVAN 1% ONE (16:58)
[2019-07-04] MEDS ORDERED: XYLOCAINE-MPF 2% ONE (16:58)
[2019-07-04] MEDS ORDERED: VERSED ONE (17:17)
[2019-07-04] MEDS ORDERED: BREVIBLOC ONE (17:38)
--- NOTE | 2019-07-04 18:00 | EKG Report ---
Test Performed on : 07/04/2019 4:57:46 PM Test Reason : tachy Blood Pressure : / mmHG Vent. Rate : 129 BPM Atrial Rate : 129 BPM P-R Int : 104 ms QRS Dur : 074 ms QT Int : 400 ms P-R-T Axes : 000 036 014 degrees QTc Int : 586 ms Sinus tachycardia. with short CO T wave abnormality, consider lateral ischemia Abnormal ECG No previous ECGs available Unconfirmed Result
[2019-07-04] MEDS ORDERED: EPINEPHRINE SYRINGE ONE (18:25)
[2019-07-04] MEDS ORDERED: ZOFRAN IV PRN (18:38)
--- NOTE | 2019-07-04 18:40 | HISTORY AND PHYSICAL ---
CHIEF COMPLAINT: Rectal bleeding. No dark stools per se. HISTORY OF PRESENT ILLNESS: A 58-year-old female with neurofibromatosis presenting with what she says is 2 weeks of rectal bleeding. She was just discharged on the for a GI bleed then which was associated with peptic ulcers and a duodenal ulcer with visible vessels which I guess was clipped. In any case, the patient came in with the rectal bleeding. She is anemic. Her hemoglobin and hematocrit are 7 and 27, which when she left was 8 were 28, so not a profound drop. White count 14,000, platelets 392,000. Creatinine is a bit higher at 2.1; she left at 1.3, so that is a bit of an increase. She had a CT scan done which showed a lot of concerning things, but I am not entirely sure they may not be related to her neurofibromatosis. There is no imaging to compare it to. In any case, she will be admitted for acute renal failure, anemia, and acute GI bleed, and we will follow closely. She has not been on any nonsteroidals. There is an order in her home medications for diclofenac gel, but nothing other than that. I think she may be taking aspirin. She has been on Prilosec and Icar C, but no other medications. PAST MEDICAL HISTORY: Again, neurofibromatosis, chronic renal failure currently right now she has stage IV but usually around stage IIIB, hypertension, history of diverticulosis, and diverticulitis. She is not diabetic. She is chronically weak. She is in assisted living. SOCIAL HISTORY: No tobacco or ethanol currently. She is in assisted living at [facility]. ALLERGIES: No known drug allergies. FAMILY HISTORY: Not contributory, but reviewed. SURGICAL HISTORY: Hysterectomy, tonsillectomy, and parathyroidectomy. MEDICATIONS: List has not been confirmed, but calcitriol 0.25, Lasix 20 daily, metoprolol 150 daily, ProAir, senna, simvastatin 20 at bedtime, Singulair 10 daily, vitamin D3 at 2000 units daily, multivitamin daily, Icar C b.i.d., and Prilosec 40 b.i.d. REVIEW OF SYSTEMS: Otherwise, negative times a 10-point review of systems. PHYSICAL EXAMINATION: VITAL SIGNS: Blood pressure 139/94, heart rate 122, respiratory rate of 15, temperature 99 degrees, and 99% on 2 L. CARDIOVASCULAR: Regular rate and rhythm. PULMONARY: Bilateral breath sounds. Clear to auscultation. GASTROINTESTINAL: Soft, nontender, nondistended. No rebound. No guarding. Bowel sounds are positive. NEUROLOGIC: Somewhat limited, but strength was intact about 3/5 in her lower extremities and 4/5 in her upper extremities. SKIN: She has multiple neurofibromas over her face. She had a very large one extending from her right arm. LABORATORY DATA: Again, hemoglobin and hematocrit are 7 and 27, white count of 14, platelets 392,000. BUN and creatinine of 37 and 2.1. PROBLEM LIST: This is a 58-year-old female with recent gastrointestinal bleed and sounds like a possible Dieulafoy's type ulcer who presents with a re-bleed, another episode of gastrointestinal bleeding, and acute renal failure. 1. Gastrointestinal bleed. Dr. Mehta has already evaluated the patient and we will have him look at that. He is going to process her for EGD. We will continue Protonix. We will transfuse and monitor closely and step down. 2. Symptomatic anemia, likely due to acute blood loss. We will continue to monitor and get her situated. Transfuse to get her at least above 8 and 24. 3. Acute on chronic renal failure. Check urine lytes and renal ultrasound. There is no evidence of obstruction based on the CT. Now that being said, her CT has a lot of abnormalities in it, some of which are suspicious for metastatic disease, but I am not entirely sure this is not all related to neurofibromatosis, and I will get Dr. Solis to review that in face of the neurofibromatosis. cc: Cosme Koenig MD Pcp
--- NOTE | 2019-07-04 19:21 | GASTROENTEROLOGY CONSULTATION ---
DATE: 07/04/2019 CONSULTING PHYSICIAN: [*]in the ER. REASON FOR CONSULTATION: GI bleed. HISTORY: This is a 58-year-old, , female patient of Dr. Portillo and Dr. Villanueva. She was seen on the 17 of June this year with similar complaints. Dr. Portillo has done an EGD and found a bleeding vessel in the second portion of the duodenum which was injected and treated with 2 Endoclips. She was discharged on with hemoglobin of 8.2 and hematocrit of 28.6. She was brought back to the emergency room today with the same complaints that she has been passing bright red blood mixed with melenic stool and she has been weak. She has not had energy. She felt that her bleeding had not stopped since her discharge. She kept on having similar symptoms. However, she denies any fever or chills. Has not had any headache or dizziness or double vision. Denies any earache, ear discharge, or ringing in the ears. She has not had any chest pain, but does complain of shortness of breath. She denies any dysuria, polyuria, or hematuria. She has not been eating well and has had constipation. She denies any mucus in her stool. PAST MEDICAL HISTORY: Significant for neurofibromatosis, history of recent GI bleed from a duodenal vessel, history of hypertension, and chronic kidney disease. She carries diagnoses of congenital heart disease, pulmonary stenosis, and mitral valve prolapse. Also carries diagnosis of leiomyosarcoma, osteoporosis, hyperthyroidism, and enlarged heart. PAST SURGICAL HISTORY: She has had a total hysterectomy, leiomyosarcoma removal, tonsillectomy, parathyroidectomy, and left hip surgery. MEDICATIONS: Prior to hospitalization she has been on ProAir, calcitriol, vitamin D, Lasix, Icar- C, metoprolol, Singulair, Centrum Silver, omeprazole, senna laxative, and simvastatin. ALLERGIES: No drug allergies. SOCIAL HISTORY: She is currently a resident of assisted living and she lives at [facility]. She does not smoke, does not drink, and does not use illicit drugs. FAMILY HISTORY: Noncontributory. REVIEW OF SYSTEMS: As per HPI as above. PHYSICAL EXAMINATION: general: On examination a very pleasant white female. She is slightly overweight. She is lying in bed. She is conscious, alert. Appears to be in no distress. She has generalized pallor. Vital signs: Temperature is 97.9 degrees, pulse ranges from 107 to 122, breathing 18, blood pressure was 150/82. She is 5 feet 3 inches tall and 180 pounds. HEENT: Head is atraumatic, normocephalic. Eyes: Conjunctivae is pale. Sclerae anicteric. She has got multiple subcutaneous nodules throughout the body from her neurofibromatosis. Mouth: Buccal mucosa moist. Throat is normal. neck: Neck is supple. No lymphadenopathy or thyromegaly. Chest: Clear to auscultate. Heart: Audible murmur. Abdomen: Full. It is soft. It is nontender. I could not appreciate any mass or visceromegaly. No ascites noted. Bowel sounds are audible. No pedal edema noted. LABORATORIES: Reviewed which showed hemoglobin today is 7.4 with hematocrit 27, WBC 14.9, MCV 91.2, platelets 392,000. PT was 13, INR 0.98, PTT 33.1. Sodium 141, potassium 4.5, chloride 103, bicarb 23, BUN is 37, creatinine 2.1. Upon discharge, her BUN was 12 and creatinine 1.3. Transaminases are normal. IMPRESSION: 1. Acute gastrointestinal bleed, recurrent. 2. Anemia secondary to gastrointestinal hemorrhage. 3. History of EGD and hemorrhage control recently. 4. History of neurofibromatosis and other medical problems. RECOMMENDATION: The patient has received IV Protonix and she has already been typed and crossed and about to be transfused 2 units of packed RBC's. I will proceed with urgent EGD for therapeutic purposes and, depending on the findings, further plans will be made. In the meantime, I would continue hemodynamic resuscitation. cc: Memo Mehta MD
[2019-07-04] MEDS: NS 1,000 ML IV SCH (20:24)
[2019-07-05] MEDS: NS 1,000 ML IV SCH ×2 (04:38→11:47)
[2019-07-05] MEDS: PROTONIX 80 MG in NS 80 ML IV SCH ×2 (05:39→18:06)
[2019-07-05 07:09] LABS: ALB/GLOB RATIO 0.8; ALBUMIN 2.7 g/dL (3.5-5.0); CALCIUM 8.7 mg/dL (8.8-10.2); CREATININE 1.8 mg/dL (0.5-0.9); POTASSIUM 4.5 mmol/L (3.5-5.1); TOTAL BILIRUBIN 0.61 mg/dL (0.20-1.00); TOTAL PROTEIN 6.1 g/dL (6.3-8.3)
[2019-07-05 07:35] LABS: BASO# 0.03 X1000 (0.0-0.2); BASO% 0.3 % (0.0-0.8); EOS# 0.14 X1000 (0.0-0.7); EOS% 1.2 % (0.0-10.0); HEMATOCRIT 33.9 % (37.0-47.0); HEMOGLOBIN 9.9 g/dL (12.0-16.0); IMM GRAN% 0.9 % (0.0-0.5); LYMPH# 0.75 X1000 (1.2-3.4); LYMPH% 6.6 % (20.5-51.1); MCH 26.5 PG (27-31); MCHC 29.2 g/dL (33-37); MCV 90.6 FL (81-99); MONO# 1.03 X1000 (0.11-0.59); MPV 10.7 FL (7.4-10.4); NEUT# 9.37 X1000 (1.4-6.5); PLT 251 X1000 (130-400); RBC 3.74 XMIL (4.2-5.4); RDW 16.2 % (11.5-14.5); WBC 11.42 X1000 (4.8-10.8)
[2019-07-05] MEDS: TYLENOL PO PRN ×2 (11:55→19:38)
--- NOTE | 2019-07-05 14:15 | GASTROENTEROLOGY PROGRESS NOTE ---
DATE: 07/05/2019 SUBJECTIVE: Patient is awake and alert, no acute distress. She denies any further bleeding. She has not had a bowel movement since admission by documentation. She did have an EGD done on 07/04/2019 that showed normal esophagus, a small bleeding angioectasia in the gastric body that was treated with cautery, and in the duodenum, there were 2 previously-placed clips noted. A large angiodysplastic lesion with bleeding was found in the second portion of the duodenum with Endoclips and cautery applied. Currently, her hemoglobin and hematocrit have improved. She has received 2 units of packed red blood cells. Hemoglobin and hematocrit today 9.9 and 33.9. OBJECTIVE: Vital Signs: Temperature 98.4 degrees, pulse 113, respirations 16, blood pressure 155/94. General: Patient is awake and alert, no acute distress. Abdomen: Soft, nontender. Positive bowel sounds. Laboratory: WBC 11.42, hemoglobin 9.9, hematocrit 33.9, MCV 90.6, platelets 251,000. Chemistry: Sodium 145, potassium 4.5, chloride 112, CO2 of 20, BUN 29, creatinine 1.8, and glucose 91. ASSESSMENT AND PLAN: 1. Gastrointestinal bleed. Patient had an esophagogastroduodenoscopy with angioectasia and angiodysplastic lesions seen in the stomach and duodenum with cautery and Endoclips applied. 2. Anemia has improved after transfusion of 2 units of packed red blood cells. 3. Acute/chronic renal failure. Continue to monitor. 4. There have been no signs of active gastrointestinal bleeding since her esophagogastroduodenoscopy procedure yesterday. We will continue to monitor. Monitor hemoglobin and hematocrit. Transfuse further packed red blood cells if needed. Dr. Villanueva or Dr. Portillo will waste picker the patient tomorrow since she is known to them. Further plans will be made as needed. I have discussed this case with Dr. Mehta. Dictated by MESERET Baldwin for Memo Mehta MD cc: MESERET Tong MD
[2019-07-05] MEDS ORDERED: LABETALOL IV PRN (15:34)
--- NOTE | 2019-07-05 15:50 | PROGRESS NOTE ---
DATE: 07/05/2019 SUBJECTIVE: Patient has no major complaints. OBJECTIVE: Blood pressure 160/94, heart rate of 114, respiratory rate of 17, temperature 97.9 degrees, 96% on 3 L. Cardiovascular: Regular rate and rhythm. Pulmonary: Bilateral breath sounds clear to auscultation. GI: Soft, nontender, nondistended. Bowel sounds were positive. Laboratory Data: White count is 11, hemoglobin and hematocrit 9.9 and 33.9, platelets 251,000. Basic was normal. Creatinine 1.8. PROBLEM LIST: 1. Gastrointestinal bleed which, per endoscopy, showed I think an acute angioectasia in the stomach and duodenum, and it was cauterized and clipped. We will monitor for signs of rebleeding, presumably 48 to 72 hours. 2. Symptomatic anemia. Hemoglobin and hematocrit are still low. We will continue to monitor. Transfuse as necessary but it has definitely come up with a transfusion. 3. History of neurofibromatosis and bedbound state. Aware. We will continue to monitor. Anticipate discharge back to assisted living and we will go from there. cc: Cosme Koenig MD
[2019-07-05] MEDS ORDERED: SENOKOT PO PRN (17:40)
[2019-07-05 18:10] LABS: HEMATOCRIT 32.6 % (37.0-47.0); HEMOGLOBIN 9.6 g/dL (12.0-16.0)
[2019-07-05] MEDS: ZOCOR PO SCH ×2 (19:38→20:02)
[2019-07-05] MEDS: ICAR-C PO SCH ×2 (19:38→20:02)
[2019-07-06] MEDS: TYLENOL PO PRN ×2 (03:19→21:25)
[2019-07-06 06:58] LABS: BASO# 0.03 X1000 (0.0-0.2); BASO% 0.2 % (0.0-0.8); EOS# 0.29 X1000 (0.0-0.7); EOS% 2.1 % (0.0-10.0); HEMATOCRIT 33.7 % (37.0-47.0); HEMOGLOBIN 9.7 g/dL (12.0-16.0); IMM GRAN# 0.08 X1000 (0.0-0.04); IMM GRAN% 0.6 % (0.0-0.5); LYMPH# 0.61 X1000 (1.2-3.4); LYMPH% 4.5 % (20.5-51.1); MCH 26.2 PG (27-31); MCHC 28.8 g/dL (33-37); MCV 91.1 FL (81-99); MONO# 1.13 X1000 (0.11-0.59); MONO% 8.3 % (1.7-9.3); MPV 10.5 FL (7.4-10.4); NEUT# 11.47 X1000 (1.4-6.5); NEUT% 84.3 % (42.2-75.2); PLT 269 X1000 (130-400); RDW 16.5 % (11.5-14.5); WBC 13.61 X1000 (4.8-10.8)
[2019-07-06 07:15] LABS: CALCIUM 8.2 mg/dL (8.8-10.2); CREATININE 1.4 mg/dL (0.5-0.9); POTASSIUM 4.1 mmol/L (3.5-5.1)
[2019-07-06] MEDS: SINGULAIR PO SCH (08:17)
[2019-07-06] MEDS: TOPROL XL PO SCH (08:17)
[2019-07-06] MEDS: VITAMIN D PO SCH (08:17)
[2019-07-06] MEDS: ICAR-C PO SCH ×2 (08:17→21:24)
[2019-07-06] MEDS: ROCALTROL PO SCH (08:17)
[2019-07-06] MEDS: LASIX PO SCH (08:18)
[2019-07-06] MEDS: CENTRUM SILVER PO SCH (08:18)
[2019-07-06] MEDS: SODIUM CHLORIDE 0.9% INJ SCH ×2 (10:35→21:24)
[2019-07-06] MEDS: PROTONIX IV SCH ×2 (10:35→21:24)
[2019-07-06] MEDS: ULTRAM PO PRN ×2 (10:35→21:24)
--- NOTE | 2019-07-06 13:25 | ENDOSCOPY OPERATIVE NOTE ---
[facility] ENDOSCOPY OPERATIVE NOTE , EGD PROCEDURE REPORT PATIENT: Jaclyn Vázquez ADMISSION DATE: 07/04/2019 MR#: [id number] : 1960 PROCEDURE DATE: 07/04/2019 SURGEON: Memo Mehta MD STATUS: inpatient INSURANCE AGENCY MANAGER: Susana Quick PREOPERATIVE DIAGNOSIS: The patient is a 58 yr old female here for an EGD due to melena and acute po st hemorrhagic anemia. PROCEDURE PERFORMED: EGD w/ Endostitch EGD w/ control of bleeding MEDICATIONS: Per Anesthesia TOPICAL ANESTHETIC: none CONSENT: The patient understands the risks and benefits of the procedure and understands that these r isks include, but are not limited to: sedation, allergic reaction, infection, perforation and/or bleeding. Alternative means of evaluation and treatment include, among others: physical exam, x-rays, and/or surgical intervention. The patient elects to proceed with this endoscopic procedure. HISORY AND PHYSICAL: 07/04/2019 DESCRIPTION OF PROCEDURE: During intra-op preparation period all mechanical and medical equipment was checked for proper function. Hand hygiene and appropriate measures for infection prevention was taken. After the risks, benefits and alternatives of the procedure were thoroughly explained, Informed consent was verified, confirmed and timeout was successfully executed by the treatment team. The patient was anesthetized with topical anesthesia and the AV23-a16 ([id number]) endoscope was introduced through the mouth and advanced to the second portion of the duoden um. Retroflexion was performed in the stomach and revealed no abnormalities. The gastroscope was then slowly withdraw n and removed. ESOPHAGUS: The mucosa of the esophagus appeared normal. STOMACH: A small bleeding angioectasia was found in the gastric body. Submucosal injection of 2ml of epinephrine 1:10,000 was performed around the bleeding site with complete hemostasis achieved. The stomach othe rwise appeared normal. DUODENUM: Two previously placed clips noted. A large angiodysplastic lesion with bleeding was found in the 2nd part of the duodenum. Submucosal injection of 6ml of epinephrine 1:10,000 was performed around the bleeding site with slower bleeding resulting. Complete hemostasis was achieved by placing a single [place] hemoclip on the bleeding site(s). SPECIMENS REMOVED: No ADVERSE EVENTS: There were no complications. POSTOPERATIVE DIAGNOSIS: 1. The mucosa of the esophagus appeared normal 2. Bleeding angioectasia in the gastric body; Submucosal injection of 2ml of epinephrine 1:10,000 wa s performed around the bleeding site 3. The stomach otherwise appeared normal 4. Two previously placed clips noted 5. Angiodysplastic lesion with bleeding was found in the 2nd part of the duodenum; Submucosal inject ion of 6ml of epinephrine 1:10,000 was performed around the bleeding site; Complete hemostasis was achieved by plac ing a single hemoclip on the bleeding site(s) RECOMMENDATIONS: 1. Start Full liquid diet for 1 Day(s) 2. Avoid non-steroid anti-inflammatory drugs 3. Resume current medications 4. Transfer to floor REPEAT EXAM: Memo Mehta MD eSigned: Memo Mehta MD 07/15/2019 3:37 PM Revised: 07/15/2019 3:37 PM cc: PATIENT NAME: Jaclyn Vázquez MR#: [id number]
--- NOTE | 2019-07-06 14:53 | GASTROENTEROLOGY PROGRESS NOTE ---
DATE: 07/06/2019 SUBJECTIVE: Ms. Vázquez is a 58-year-old female. The patient is currently on a full liquid diet and she has been able to tolerate her diet well. She also has been having positive bowel movements. She did have one today. The patient denied noticing any further bleeding. Her hemoglobin and hematocrit today is 9.7 and 33.7. She has received 2 unit of blood so far. OBJECTIVE: Vital signs: Temperature 98.3 degrees, pulse 113, respirations 16, blood pressure 155/96, oxygen saturation 99% on 1 L via nasal cannula. General: She is alert and oriented x3, and in no acute distress. HEENT: Pale conjunctivae, no icterus. PERRL. Neck: Supple. Lungs: Clear to auscultation. Cardiovascular: Regular rate and rhythm. Abdomen: Soft, nontender, nondistended. Active bowel sounds heard in all four quadrants. Extremities: No clubbing, no cyanosis, no edema. Pedal pulses 2+ present bilaterally. Neurologic: Alert and oriented x3. LABORATORY DATA: WBC is 13.61, RBC 3.70, hemoglobin 9.7, hematocrit 33.7, platelet count down to 259,000. Sodium 145, potassium 4.1, chloride 115, carbon dioxide 18, anion gap 12. BUN 19, creatinine 1.4, glucose 93, calcium 8.2. EGD FINDINGS: Bleeding angiotelectasia in the gastric body. Submucosal injection of 2 mL of epinephrine was done to cauterize the bleeding. The stomach appeared normal. There were two previously placed clips noted. Angiodysplastic lesion with bleeding was found in the second part of the duodenum and it was cauterized IMPRESSION AND PLAN: 1. Gastrointestinal bleed. 2. Anemia. 3. Neurofibromatosis. 4. Elevated creatinine. PLAN: Ms. Vázquez is a 58-year-old female with a history of neurofibromatosis. GI is following her for a GI bleed. The patient had an EGD done yesterday, she had some bleeding angiotelectasia in the gastric body, and angiodysplastic lesion with bleeding was found in the second part of the duodenum. The patient is currently on a full liquid diet. She has been advised to avoid NSAIDs. We will continue with PPI daily for GI bleed. Her anemia is improving, we will continue her with iron BID and multivitamin once daily. She can follow up with Dr. Portillo as an outpatient in one week. This plan was discussed with Dr. Villanueva. Please call us for any further questions or concerns. Dictated by MESERET Patterson for Salomón Villanueva MD cc: Salomón Villanueva MD I have seen and examined the patient myself and I agree with the above plan of care. Please call us with any questions or concerns. MTDD
--- NOTE | 2019-07-06 16:47 | Diag Imaging Result Doc PS360 ---
EXAM: SKELETAL SURVEY (ADULT) 07/06/2019 HISTORY: lytic disease TECHNIQUE: 17 images COMMENT: There is increased opacity in the left perihilar region compared to the previous chest radiograph of 07/04/2019. No earlier studies are available for comparison. There is evidence of multiple old rib fractures. Severe rotoscoliosis of the midthoracic spine is present. There is generalized osteopenia. There is marked deformity of the pelvis. Both hips demonstrate narrowing of the joint spaces and there has apparently been previous fractures of both superior and inferior pubic rami. There has been internal fixation of the left proximal femur. There is biconcavity of the lumbar vertebral bodies and many of the thoracic vertebral bodies. Marked osteopenia is noted in the long bones and there is an old fracture of the proximal left fibula. There is also an apparent fracture of the distal radius on the right. There are large skin lesions present in the right arm. IMPRESSION: Marked osteopenia with osteoporotic changes in the spine, severe thoracic scoliosis, and deformities in the pelvis. The presence of multiple skin lesions suggests the possibility of neurofibromatosis. The possibility of left upper lobe pneumonia cannot be excluded. Electronically signed by Cyril Delgado 07/06/2019 4:44 PM
--- NOTE | 2019-07-06 18:14 | PROGRESS NOTE ---
DATE: 07/06/2019 SUBJECTIVE: Patient has no major complaints. OBJECTIVE: Vital Signs: Blood pressure is 155/96, heart rate of 113, respiratory rate 16, temperature 98.3 degrees, 99% on 1 L. Cardiovascular: Regular rate and rhythm. Pulmonary: Bilateral breath sounds clear to auscultation. Gastrointestinal: Abdomen soft, nontender, nondistended. Bowel sounds were positive. LABORATORY DATA: White count 13, hemoglobin and hematocrit 9 and 33, platelets 269,000. Creatinine is 1.4. PROBLEM LIST: 1. Gastrointestinal bleed with hemoglobin and hematocrit stable. She had multiple bleeding angioectasia. She has neurofibromatosis at baseline but her hemoglobin and hematocrit 9 and 33, white count 13, creatinine is down to 1.4. We will continue proton pump inhibitors and follow. 2. Symptomatic anemia. Again, her hemoglobin and hematocrit has stabilized after transfusion. 3. Neurofibromatosis. We will continue to monitor her CT scan on admission showed multiple concerning things. Parenchymal nodules of both lung bases but I am not sure if those are related to her neurofibromatosis. She also had a lesion on the upper pole of the right kidney and diffuse mixed lytic and sclerotic metastatic disease, which I do not clearly have an explanation for so we will pursue some more imaging and follow SPEP and UPEP and monitor. cc: Cosme Koenig MD
[2019-07-06] MEDS: ZOCOR PO SCH (21:24)
[2019-07-07 06:57] LABS: BASO# 0.03 X1000 (0.0-0.2); BASO% 0.2 % (0.0-0.8); EOS# 0.26 X1000 (0.0-0.7); EOS% 1.9 % (0.0-10.0); HEMATOCRIT 30.6 % (37.0-47.0); HEMOGLOBIN 8.9 g/dL (12.0-16.0); IMM GRAN# 0.06 X1000 (0.0-0.04); IMM GRAN% 0.4 % (0.0-0.5); LYMPH# 0.55 X1000 (1.2-3.4); LYMPH% 4.1 % (20.5-51.1); MCH 26.5 PG (27-31); MCHC 29.1 g/dL (33-37); MCV 91.1 FL (81-99); MONO# 1.13 X1000 (0.11-0.59); MONO% 8.4 % (1.7-9.3); MPV 10.5 FL (7.4-10.4); NEUT# 11.46 X1000 (1.4-6.5); PLT 252 X1000 (130-400); RBC 3.36 XMIL (4.2-5.4); RDW 16.8 % (11.5-14.5); WBC 13.49 X1000 (4.8-10.8)
[2019-07-07 07:19] LABS: CALCIUM 8.7 mg/dL (8.8-10.2); CREATININE 1.4 mg/dL (0.5-0.9); POTASSIUM 4.4 mmol/L (3.5-5.1)
[2019-07-07] MEDS: PROTONIX IV SCH ×2 (09:11→21:09)
[2019-07-07] MEDS: ULTRAM PO PRN (09:11)
[2019-07-07] MEDS: SODIUM CHLORIDE 0.9% INJ SCH ×2 (09:11→21:09)
[2019-07-07] MEDS: ICAR-C PO SCH ×2 (09:12→21:09)
[2019-07-07] MEDS: TOPROL XL PO SCH (09:12)
[2019-07-07] MEDS: LASIX PO SCH (09:12)
[2019-07-07] MEDS: TYLENOL PO PRN ×2 (09:12→16:47)
[2019-07-07] MEDS: CENTRUM SILVER PO SCH (09:12)
[2019-07-07] MEDS: SINGULAIR PO SCH (09:12)
[2019-07-07] MEDS: ROCALTROL PO SCH (09:12)
[2019-07-07] MEDS: VITAMIN D PO SCH (09:13)
--- NOTE | 2019-07-07 15:49 | Diag Imaging Result Doc PS360 ---
CT THORAX W/O CONTRAST - 07/07/2019 INDICATION: metastatic disease COMPARISON: Abdomen pelvis CT 07/04/2019 FINDINGS: There is a trace right and small to moderate left pleural effusion. There are hazy infiltrates bilaterally. Heart size is top normal. There are numerous very small pulmonary nodules bilaterally. Airways are all clear. There is diffusely abnormal bony mineralization is indeterminate. There is also a hemivertebra formation with severe scoliosis in the mid thoracic spine. This is levoscoliosis. IMPRESSION: 1. Probable small bilateral pulmonary nodules. Somewhat obscured due to the background of heterogeneous interstitial infiltrates/pulmonary edema. 2. Bilateral pleural effusions. 3. Severely abnormal bones that are nonspecific. This exam was performed using automated exposure control, adjustment of mA or kV according to patient size, and/or use of iterative reconstruction technique Electronically signed by Juwan Calhoun 07/07/2019 3:47 PM
--- NOTE | 2019-07-07 16:26 | GASTROENTEROLOGY PROGRESS NOTE ---
DATE: 07/07/2019 SUBJECTIVE: Ms. Vázquez a 58-year-old, female. The patient's diet has been advanced to diabetic diet and she is able to tolerate a diet well. The patient has been having positive bowel movements. The patient has denied any abdominal pain, nausea, vomiting. OBJECTIVE: Vital Signs: Temperature 98.1 degrees, pulse 102, respirations of 20, blood pressure 124/79, oxygen saturation is 98% on 3 L nasal cannula. Her weight is 126 pounds, BMI is 32.7 kg/m2. General: She is alert, oriented x3, and in no acute distress. HEENT: Pale conjunctivae. No icterus. PERRL. Neck: Supple. Lungs: Clear to auscultation. Cardiovascular: The patient is tachycardic. Abdomen: Soft, nontender, nondistended. Active bowel sounds heard in all 4 quadrants. Extremities: No clubbing, no cyanosis, no edema. Pedal pulses 2+ present bilaterally. Neurologic: She is alert, oriented x3. LABORATORY DATA: WBCs 13.49, RBC 3.39, hemoglobin 8.9, hematocrit is 30.6. PT is 252. Sodium 140, potassium 4.4, chloride 110, carbon dioxide 20, anion gap is 10, BUN is 23, creatinine is 1.4, glucose is 98, calcium 8.7. IMPRESSION AND PLAN: 1. Gastrointestinal bleed. 2. Anemia. 3. Neurofibromatosis. 4. Elevated liver. 5. Elevated creatinine. PLAN: Ms. Vázquez is a 58-year-old female with a history of neurofibromatosis. GI is following her for her GI bleed. The patient had an EGD done on Saturday and it showed that she had some bleeding angioectasias in the gastric body and angiodysplastic lesions with bleeding was found in the second part of the duodenum. We have advanced patient's diet to a diabetic diet. We have advised her to avoid NSAIDs. We will continue her with PPI for her GI bleed. For her anemia, she is on iron twice a day and multivitamin once a day. The patient's hemoglobin and hematocrit today is 8.9 and 30.6. She is hemodynamically stable. We will continue to monitor her and follow the plan of care per PCP. This plan was discussed with Dr. Portillo. Please call us for any further questions. Dictated by MESERET Patterson for Mauro Portillo MD MTDEugenio
--- NOTE | 2019-07-07 20:37 | HEMO/ONC CONSULTATION ---
DATE: 07/07/2019 REQUESTING PHYSICIAN: Hospitalist service. REASON FOR CONSULTATION: Patient known to [facility]. HISTORY OF PRESENT ILLNESS: Ms. Vázquez is a 58-year-old female who is known to our practice as she has previously seen Dr. Hernández at the [place] office. 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 She had adjuvant radiation therapy back in 2009 as well. Her last office visit with Dr. Hernández was in September 2015. The patient has now been admitted for rectal bleeding. She was actually recently in with rectal bleeding back in June, and discharged on 06/21/2019. She has already had an EGD which showed bleeding AVMs. During her workup, they did a CT scan of her abdomen and pelvis which showed innumerable small nodules in her lungs suspicious for metastatic disease as well as mixed lytic and sclerotic metastatic disease throughout the visualized skeleton. She also has a thickening of her urinary bladder as well as a mass in the upper pole of her right kidney suspicious for neoplasm. We have been consulted due to the findings to help work up the patient further and also the fact that she is an established patient with our practice. PAST MEDICAL HISTORY: 1. Neurofibromatosis. 2. Leiomyosarcoma, high-grade, resected and followed by adjuvant radiation therapy back in 2009. 3. Hypertension. 4. Diverticulosis. 5. Diabetes. 6. Chronic renal failure. SOCIAL HISTORY: The patient currently lives in assisted living at the [facility]. She denies any alcohol or illicit drug use. FAMILY HISTORY: No cancer history in her family. SURGICAL HISTORY: Status post hysterectomy, tonsillectomy, parathyroidectomy previously. REVIEW OF SYSTEMS: A 10-point review of systems has been completed and is negative, except for expressed in HPI. PHYSICAL EXAMINATION: Vital Signs: Temperature 98.1 degrees, heart rate 102, respirations 20, blood pressure 124/79, O2 saturation 98% on 3 L nasal cannula. General: This is a female lying in her hospital bed and there is no one at bedside. She is in no acute distress. head: Normocephalic, atraumatic. Eyes: Pupils equal, round, reactive. Ears, nose, throat, neck, mouth: Oral mucosa appears to be normal. Gross auditory acuity is intact. Cardiovascular: S1, S2 heard. Tachycardia noted, but regular rhythm. Respiratory: Chest is clear. Gastrointestinal: Abdomen is soft. Musculoskeletal: No obvious bony abnormalities. Neurologic: Patient is alert. LABORATORY AND STUDIES: CT scan as per the HPI. White blood cells today are 13.49, hemoglobin 8.9, platelet count 252,000. Creatinine is 1.4. ASSESSMENT AND PLAN: 1. New metastatic disease seen on CT scan. The patient will need to be worked up. We recommend doing a CT-guided biopsy of her largest lung nodule. We will go ahead and start working to get that done. We will also check tumor markers including CEA and LDH. Follow up on the results when they become available. This is likely a new primary and not a recurrence. 2. Gastrointestinal bleed. Hopefully, this should improve after her EGD. She is status post 2 units of packed red blood cells. Hemoglobin is overall stable. She is also on p.o. iron, continue. 3. History of high-grade leiomyosarcoma. 4. Neurofibromatosis. 5. Blood loss anemia. Continue to monitor CBC. Thank you for consulting us on Ms. Vázquez. We will continue to follow along and adjust our treatment plan per hospital course. Dictated by LOR Lay for Pili Rosado MD cc: Pili Rosado MD I have seen and examined the patient and the above note reflects my history, physical exam, assessment and plan. Pili Rosado MD [facility]
--- NOTE | 2019-07-07 20:37 | PROGRESS NOTE ---
DATE: 07/07/2019 SUBJECTIVE: The patient has no major complaints. OBJECTIVE: Vital signs: Blood pressure is 127/89, heart rate of 100, respiratory rate 18, temperature 97.9 degrees, 100% saturation on 2 L. Cardiovascular: Regular rate and rhythm. Pulmonary: Bilateral breath sounds, clear to auscultation. GI: Soft, nontender, nondistended. Bowel sounds are positive. LABORATORY DATA: White count is 13, hemoglobin and hematocrit 8.9 and 30, platelets 252,000. BUN and creatinine of 23 and 1.4. PROBLEM LIST: 1. Gastrointestinal bleed, which has stabilized. She has angioectasias that were bleeding, but I think her hemoglobin and hematocrit have dropped a little bit today, so we will keep an eye on it. 2. Acute on chronic renal failure. That apparently is improved. She has some 3rd spacing with pleural effusions. She has a lot of nodules, but again I am not entirely sure this may not be related to her neurofibromatosis. I did get an Oncology opinion and they are pursuing a lung biopsy, so we will continue to follow. I think she probably needs a little bit of diuresis. She is on Lasix, but I do not think she is probably on enough Lasix, so we will continue to follow. I am going to give her a couple doses of intravenous Lasix and we will see how her numbers look. She was in a little bit of renal failure when she came in, but we have tried to abbreviate that. 3. In any case, we will work with physical therapy. She also may require rehab as well. She is from an assisted living, but she does not seem very functional at the moment, but it sounds like at baseline she gets into a wheelchair and that is it. We will follow closely. cc: Cosme Koenig MD
[2019-07-07] MEDS: LASIX IV SCH (21:09)
[2019-07-07] MEDS: ZOCOR PO SCH (21:09)
[2019-07-08] MEDS: ULTRAM PO PRN (06:04)
[2019-07-08] MEDS: LASIX IV SCH (06:05)
[2019-07-08 07:58] LABS: CALCIUM 9.1 mg/dL (8.8-10.2); CREATININE 1.5 mg/dL (0.5-0.9); POTASSIUM 4.3 mmol/L (3.5-5.1)
[2019-07-08] MEDS: SODIUM CHLORIDE 0.9% INJ SCH ×2 (08:05→21:46)
[2019-07-08] MEDS: PROTONIX IV SCH ×3 (08:05→21:46)
[2019-07-08] MEDS: TOPROL XL PO SCH (08:06)
[2019-07-08] MEDS: VITAMIN D PO SCH (08:14)
[2019-07-08] MEDS: CENTRUM SILVER PO SCH (08:14)
[2019-07-08] MEDS: SINGULAIR PO SCH (08:14)
[2019-07-08] MEDS: ROCALTROL PO SCH (08:14)
[2019-07-08] MEDS: ICAR-C PO SCH ×2 (08:14→21:46)
[2019-07-08 08:51] LABS: BASO# 0.04 X1000 (0.0-0.2); BASO% 0.2 % (0.0-0.8); EOS# 0.24 X1000 (0.0-0.7); EOS% 1.3 % (0.0-10.0); HEMATOCRIT 29.8 % (37.0-47.0); HEMOGLOBIN 8.6 g/dL (12.0-16.0); IMM GRAN# 0.06 X1000 (0.0-0.04); IMM GRAN% 0.3 % (0.0-0.5); LYMPH# 0.77 X1000 (1.2-3.4); LYMPH% 4.1 % (20.5-51.1); MCH 26.4 PG (27-31); MCHC 28.9 g/dL (33-37); MCV 91.4 FL (81-99); MONO% 7.4 % (1.7-9.3); MPV 10.7 FL (7.4-10.4); NEUT# 16.39 X1000 (1.4-6.5); NEUT% 86.7 % (42.2-75.2); PLT 300 X1000 (130-400); RBC 3.26 XMIL (4.2-5.4); RDW 17.2 % (11.5-14.5)
--- NOTE | 2019-07-08 09:53 | Diag Imaging Result Doc PS360 ---
EXAM: CT THORAX W/O CONTRAST INDICATION: lung Biopsy TECHNIQUE: This exam was performed using automated exposure control, adjustment of mA or kV according to patient size, and/or use of iterative reconstruction technique. COMPARISON: 07/07/2019 FINDINGS: The innumerable nodular densities seen throughout both lungs with a background of interstitial and groundglass infiltrates are unchanged as compared to the recent prior study. There is a stable trace right effusion and a stable [id number] sized left effusion. There is no cardiomegaly. No significant mediastinal or hilar lymphadenopathy is appreciated. Markedly abnormal bony mineralization with diffusely heterogeneous bones is again noted. Once again, severe scoliosis is noted. Limited views of the upper abdomen are unchanged. IMPRESSION: Stable CT chest. Electronically signed by Manuel Solis 07/08/2019 9:51 AM
[2019-07-08 10:28] LABS: INR 1.12; PROTIME 14.6 Seconds (11.0-16.0)
[2019-07-08 10:29] LABS: PTT 34.7 Seconds (22.3-41.8)
--- NOTE | 2019-07-08 12:19 | Diag Imaging Result Doc PS360 ---
EXAM: CHEST-2 VIEWS INDICATION: POST BIOPSY INS AND EXP TECHNIQUE: 2 views COMPARISON: 07/04/2019 FINDINGS: No definite pneumothorax can be identified status post left lung biopsy attempt. However, there was trace pleural gas seen on CT images performed during the biopsy. Diffuse nodular opacities seen throughout both lungs are again noted similar to the previous study. Cardiac silhouette is stable. IMPRESSION: No definite pneumothorax identified by plain radiograph. However, there was minimal pleural gas seen on CT performed during the biopsy attempt. A repeat chest radiograph will be performed in four hours. Electronically signed by Manuel Solis 07/08/2019 12:17 PM
[2019-07-08 12:49] LABS: BANDS 2 % (0-1); LYMPHS 5 % (21-51); MONO 2 % (1-9); SEGS 91 % (42-75)
--- NOTE | 2019-07-08 13:01 | Diag Imaging Result Doc PS360 ---
EXAM: CT GUIDED BIOPSY LUNG INDICATION: Metastatic disease TECHNIQUE: COMPARISON: 07/08/2019 FINDINGS: Risks, benefits, and alternatives were discussed with the patient and informed consent was obtained. The patient was placed in supine position and was prepped and draped in sterile fashion. A prominent nodule at the inferior aspect of the lingula was selected for biopsy due to its size and its superficial location. Multiple biopsy attempts were performed using an 18-gauge coaxial biopsy needle system. Unfortunately, none of the biopsy attempts were successful as the nodule was partially blocked by overlying costal cartilage to the procedure was stopped. There was minimal pleural gas seen on a few of the CT images there were obtained during biopsy. No pneumothorax was seen on a postprocedural radiograph due to the small amount of gas. A repeat chest radiograph will be performed four hours from the procedure. There were no other known complications. IMPRESSION: 1.Unsuccessful attempt at left lingular nodule biopsy. Note that in 24 hours, a different nodule can be attempted for biopsy if needed. 2.Minimal pleural gas seen on CT images during the procedure but no significant pneumothorax identified on chest radiograph. Electronically signed by Manuel Solis 07/08/2019 12:59 PM
--- NOTE | 2019-07-08 14:03 | PROGRESS NOTE ---
DATE: 07/08/2019 SUBJECTIVE: Patient reports feeling fine; just some pain in the back. OBJECTIVE: Vitals: Temperature is 98.4 degrees, heart rate 108, respiratory rate 16, blood pressure 97/60, O2 saturation 99% on 3 L nasal cannula. General Examination: This is a 58-year- old female, lying in bed in no acute distress. Cardiovascular Exam: S1, S2 heard. No murmurs, gallops, or rubs. Regular rate and rhythm. Respiratory Exam: Clear bilaterally to auscultation. No work of breathing or using accessory muscles. Abdomen: Soft, nontender to palpation. Bowel sounds present. No organomegaly. Extremities: No clubbing, cyanosis, or edema. Peripheral pulses present in both legs. Skin: Multiple neurofibromas over the face. She had a very large 1 extending from her right arm. Neurological Exam: Patient is awake, oriented x3. Moves 4 extremities. LABORATORY DATA: Reviewed. ASSESSMENT AND PLAN: 1. Gastrointestinal bleeding. Her hemoglobin continues to be stable pretty much the same in comparing with yesterday, 8.6 and 8.9. We will continue to monitor. 2. Acute on chronic kidney disease. Creatinine continues to be stable. We will continue to monitor. 3. Metastasis suspected. Oncology has recommended a lung biopsy because we do not know if those are metastatic nodules or neurofibromatosis. We did a CT-guided biopsy today, but the attempt was unsuccessful. We will talk with Pulmonary to see if we need to repeat that exam or not. 4. Physical deconditioning. Patient working with physical therapy. Definitely she may need to go to rehabilitation facility as she looks pretty weak to my examination. At this point, we will continue to monitor this patient closely. cc: Praveen Canseco MD
--- NOTE | 2019-07-08 16:05 | ECHO REPORT ---
ORDER DATE: 07/08/2019 INTERPRETING PHYSICIAN: Dr. Cameron Parham. Technically suboptimal study. Very poor acoustic window. Measurements and images were obtained in the subcostal views. ECHOCARDIOGRAPHIC MEASUREMENTS: 1. Interventricular septum: 0.8 cm. 2. Left ventricular posterior wall: 0.7 cm. 3. Diastolic diameter: 3 cm. 4. Left atrium: 3.7 cm. SUMMARY OF THE 2-DIMENSIONAL IMAGIN. Pulmonic valve not well visualized. 2. Mitral valve was normal. 3. Tricuspid valve was normal. 4. Normal left ventricular cavity size. 5. Estimated ejection fraction of 60 to 65%. 6. There is mild tricuspid regurgitation. 7. Peak velocity across the tricuspid valve was 2.5 meters per second. 8. Pulmonary artery systolic pressure of 35 mmHg. 9. There is mild mitral regurgitation. 10. There is no aortic stenosis. 11. Anterior echo-free space suggestive of pericardial effusion anteriorly. 12. There is no evidence of tamponade. 13. There is trace pericardial effusion. 14. Pericardium appears mildly thickened. cc: MD Cosme Addison MD
--- NOTE | 2019-07-08 16:58 | Diag Imaging Result Doc PS360 ---
EXAM: CHEST-2 VIEWS INDICATION: LUNG BIOPSY TECHNIQUE: 2 views COMPARISON: 07/08/2019 FINDINGS: Diffuse consolidation and nodularity throughout both lungs are stable. There is still no well-defined pneumothorax identified. The cardiac silhouette is stable. IMPRESSION: Still no well-defined pneumothorax identified by plain radiograph. Stable chest, otherwise. Electronically signed by Manuel Solis 07/08/2019 4:56 PM
[2019-07-08] MEDS: MORPHINE IV PRN (17:05)
[2019-07-08 18:05] LABS: UR CREAT RANDOM 52.5 mg/dL (11-20)
[2019-07-08] MEDS: ZOCOR PO SCH (21:46)
--- NOTE | 2019-07-09 09:12 | PROGRESS NOTE ---
DATE: 07/09/2019 SUBJECTIVE: The patient reports feeling okay. Mild back, pain but no fever or chills. OBJECTIVE: Vital Signs: Temperature 97.9 degrees, heart rate 119, respiratory rate 16, blood pressure 119/83, O2 saturation 97% on room air. General: This is a 58-year-old, female, lying in bed in no acute distress. Cardiovascular: S1, S2 heard. No murmurs, gallops, or rubs. Regular rate and rhythm. Respiratory: Clear bilaterally to auscultation. No work of breathing or using accessory muscles. Abdomen: Soft, nontender to palpation. Bowel sounds present. No organomegaly. Extremities: No clubbing, cyanosis, or edema. Peripheral pulses present in both legs. Skin: Multiple neurofibromas over the face. She has a very large one extending from the right arm. Neurological: The patient is awake, oriented x3. Moves all 4 extremities. LABORATORY DATA: There are no labs from today, but from yesterday, there has been an increase of white cell count from 30,000 to 18,000. Renal function continues to be in the range of 1.4 to 1.5 from yesterday. Labs from today are still pending. ASSESSMENT AND PLAN: 1. Gastrointestinal bleeding. Apparently, hemoglobin is stable so far, at least from yesterday. We are awaiting results of CBC today, but no overt signs of bleeding. 2. Acute on chronic kidney disease. Creatinine is in the range of 1.4 today. Will continue to monitor. 3. Metastasis suspected. Oncology has recommended a lung biopsy. We tried to do it yesterday, but we were not successful. I think we should try today. If not, will talk to Oncology to see what else we can do for this patient while she is in the hospital. 4. Physical deconditioning. Patient working with Physical Therapy. Actually, she already has a bed in rehab facility whenever she is ready to go. cc: Praveen Canseco MD
--- NOTE | 2019-07-09 10:39 | Diag Imaging Result Doc PS360 ---
EXAM: CHEST-2 VIEWS INDICATION: POST BIOPSY INS/EXP CXR TECHNIQUE: 2 views COMPARISON: 07/08/2019 FINDINGS: There is no evidence of pneumothorax by plain radiograph status post right lung biopsy. Diffuse nodular infiltrates seen throughout both lungs are essentially stable. No definite new consolidation is identified. Cardiac silhouette is stable. IMPRESSION: No discrete pneumothorax identified by plain radiograph status post right lung biopsy. Electronically signed by Manuel Solis 07/09/2019 10:37 AM
--- NOTE | 2019-07-09 11:03 | Diag Imaging Result Doc PS360 ---
EXAM: CT GUIDED BIOPSY LUNG INDICATION: Multiple pulmonary nodules bilaterally with unsuccessful left lung biopsy yesterday TECHNIQUE: COMPARISON: 07/08/2019 FINDINGS: Risks, benefits, and alternatives were discussed with the patient and informed consent was obtained. Patient was placed in supine position and was prepped and draped in sterile fashion. Using CT guidance, four 1.3 cm core biopsies were obtained from one of the nodules in the anterior segment of the right upper lobe and sent for pathological analysis. There were no known complications. A chest radiograph following the procedure showed no sign of pneumothorax. IMPRESSION: Technically successful CT-guided right lung biopsy. Electronically signed by Manuel Solis 07/09/2019 11:01 AM
[2019-07-09 11:07] LABS: BASO# 0.05 X1000 (0.0-0.2); BASO% 0.2 % (0.0-0.8); EOS# 0.08 X1000 (0.0-0.7); EOS% 0.4 % (0.0-10.0); HEMOGLOBIN 8.3 g/dL (12.0-16.0); IMM GRAN# 0.08 X1000 (0.0-0.04); IMM GRAN% 0.4 % (0.0-0.5); LYMPH# 0.86 X1000 (1.2-3.4); LYMPH% 4.2 % (20.5-51.1); MCH 26.5 PG (27-31); MCHC 28.6 g/dL (33-37); MCV 92.7 FL (81-99); MONO# 1.76 X1000 (0.11-0.59); MONO% 8.6 % (1.7-9.3); MPV 10.6 FL (7.4-10.4); NEUT# 17.72 X1000 (1.4-6.5); NEUT% 86.2 % (42.2-75.2); PLT 325 X1000 (130-400); RBC 3.13 XMIL (4.2-5.4); RDW 17.7 % (11.5-14.5); WBC 20.55 X1000 (4.8-10.8)
[2019-07-09] MEDS: ROCALTROL PO SCH (11:12)
[2019-07-09] MEDS: ICAR-C PO SCH (11:12)
[2019-07-09] MEDS: VITAMIN D PO SCH (11:12)
[2019-07-09] MEDS: TOPROL XL PO SCH (11:13)
[2019-07-09] MEDS: CENTRUM SILVER PO SCH (11:13)
[2019-07-09] MEDS: SINGULAIR PO SCH (11:13)
[2019-07-09] MEDS: SODIUM CHLORIDE 0.9% INJ SCH (11:13)
[2019-07-09] MEDS: PROTONIX IV SCH (11:13)
[2019-07-09 11:28] LABS: CALCIUM 9.2 mg/dL (8.8-10.2); CREATININE 1.8 mg/dL (0.5-0.9); POTASSIUM 4.7 mmol/L (3.5-5.1)
[2019-07-09] MEDS: MIRALAX PO SCH (12:58)
--- NOTE | 2019-07-09 13:12 | Diag Imaging Result Doc PS360 ---
EXAM: CHEST-PORTABLE (inspiration/expiration) INDICATION: chest pain after lung bx TECHNIQUE: 2 views COMPARISON: 07/09/2019 FINDINGS: On the expiration radiograph, there is suggestion of a tiny crescentic lucency at the right lung apex. This could represent a trace right apical pneumothorax. If so, it appears to occupy only around 5% or less of the right hemithorax. Extensive diffuse nodular airspace opacities seen throughout both lungs are very similar to the previous study. The cardiac silhouette is stable. IMPRESSION: Questionable trace post biopsy right apical pneumothorax. Note that the patient is scheduled for another chest radiograph at approximately 1430. Electronically signed by Manuel Solis 07/09/2019 1:10 PM
[2019-07-09] MEDS: MORPHINE IV PRN (16:01)
--- NOTE | 2019-07-09 17:21 | Diag Imaging Result Doc PS360 ---
EXAM: CHEST-2 VIEWS HISTORY: lung biopsy TECHNIQUE: Two views COMPARISON: 11:34 AM FINDINGS: Dense bilateral infiltrates persist. No pneumothorax identified. Electronically signed by Paolo Lund 07/09/2019 5:18 PM
[2019-07-10] MEDS: ICAR-C PO SCH ×3 (00:02→22:40)
[2019-07-10] MEDS: ZOCOR PO SCH ×2 (00:02→22:39)
[2019-07-10] MEDS: MIRALAX PO SCH ×3 (00:02→22:39)
[2019-07-10] MEDS: PROTONIX IV SCH ×3 (00:02→22:39)
[2019-07-10] MEDS: SODIUM CHLORIDE 0.9% INJ SCH ×3 (00:02→22:39)
[2019-07-10] MEDS: MORPHINE IV PRN ×3 (00:08→19:00)
[2019-07-10 07:55] LABS: BASO# 0.04 X1000 (0.0-0.2); BASO% 0.3 % (0.0-0.8); EOS# 0.18 X1000 (0.0-0.7); EOS% 1.1 % (0.0-10.0); HEMATOCRIT 24.9 % (37.0-47.0); IMM GRAN# 0.07 X1000 (0.0-0.04); IMM GRAN% 0.4 % (0.0-0.5); LYMPH# 0.81 X1000 (1.2-3.4); LYMPH% 5.1 % (20.5-51.1); MCHC 28.1 g/dL (33-37); MCV 92.6 FL (81-99); MONO# 1.46 X1000 (0.11-0.59); MONO% 9.2 % (1.7-9.3); MPV 10.7 FL (7.4-10.4); NEUT# 13.23 X1000 (1.4-6.5); NEUT% 83.9 % (42.2-75.2); PLT 271 X1000 (130-400); RBC 2.69 XMIL (4.2-5.4); RDW 17.2 % (11.5-14.5); WBC 15.79 X1000 (4.8-10.8)
[2019-07-10 08:18] LABS: CREATININE 1.6 mg/dL (0.5-0.9); POTASSIUM 4.4 mmol/L (3.5-5.1)
--- NOTE | 2019-07-10 08:22 | PROGRESS NOTE ---
DATE: 07/10/2019 SUBJECTIVE: The patient according to the nursing staff had black stool this morning. Denies any other complaint. The patient reports mild back pain, but no other complaints noted. OBJECTIVE: Vitals: Temperature 98.1 degrees, heart rate 102 respiratory rate 20, blood pressure 120/75, O2 saturation 99% on 3 L nasal cannula. General examination: This is a 58-year-old female, lying in bed in no acute distress. Cardiovascular exam: S1, S2 heard. No murmurs, gallops, or rubs. Regular rate and rhythm. Respiratory exam: Clear bilaterally to auscultation. No work of breathing or using accessory muscles. Abdomen: Soft, nontender to palpation. Bowel sounds present. No organomegaly. Extremities: No clubbing, cyanosis, or edema. Peripheral pulses present in both legs. Skin: Multiple neurofibromas over the face; she has a very large one extending from the right arm. Neurological exam: Patient is alert and oriented x3. Moves 4 extremities. LABORATORY DATA: Pending at the time of dictation. ASSESSMENT AND PLAN: 1. Gastrointestinal bleeding. This morning it was reported per nursing staff an episode of melena. We will wait for results of complete blood count, and we will go from there. We will continue with Protonix 40 mg intravenous every 12 hours. 2. Acute on chronic kidney disease. Continue to monitor basic metabolic panel daily. 3. Leukocytosis. We do not know exactly where this white cell count is coming from. No sure if it is from metastasis, in any case, we will continue to monitor. 4. Metastasis suspected. Finally we were able to do CT-guided lung biopsies yesterday. We will continue to monitor. 5. Physical deconditioning. Physical therapy is working with this patient. The patient will go to rehabilitation once she is medically stable. 6. Disposition: At this point, considering that she apparently had another episode of bleeding, my plan is to keep this patient over the weekend, monitoring hemoglobin. If everything is stable, we will discharge this patient on Saturday. cc: Praveen Canseco MD [facility]
[2019-07-10] MEDS: CENTRUM SILVER PO SCH (10:44)
[2019-07-10] MEDS: ROCALTROL PO SCH (10:44)
[2019-07-10] MEDS: VITAMIN D PO SCH (10:45)
[2019-07-10] MEDS: SINGULAIR PO SCH (10:45)
[2019-07-10] MEDS: TOPROL XL PO SCH (10:45)
[2019-07-10] MEDS ORDERED: NS 500 ML IV ONE (13:07)
--- NOTE | 2019-07-10 13:30 | GASTROENTEROLOGY PROGRESS NOTE ---
DATE: 07/09/2019 DICTATING PHYSICIAN: Dr. Lennon. SUBJECTIVE: Patient resting in bed. She came back from CT-guided lung biopsy. She is feeling the same. She denies any nausea, vomiting, vomiting blood or passing blood in the stools. Her hematocrit has been stable. There are no signs of overt GI bleeding. Patient complains of constipation. VITALS: Temperature of 97.9, pulse rate of 106, respiratory rate of 18, blood pressure 107/70 satting 100% on 3 L nasal cannula. Body weight of 125 pounds 12.8 ounces. BMI 32.7 kg. OBJECTIVE: General: This individual is moderately malnourished, lying in bed in no acute distress. HEENT: Pale conjunctivae. No icterus. Pupils equal, reactive to light. Neck: Supple. Abdomen: Soft, nontender, nondistended. No guarding. Extremities: No cyanosis, clubbing. Neurologic: Neuro ordonez, she is alert, awake, oriented. Skin: She has evidence of neurofibromas. LABS: Hemoglobin and hematocrit is 8.3 and 29, white count of 20.5, platelet count of 325. Her sodium 141, potassium 4.7, chloride 104, bicarbonate of 19, anion gap of 18. BUN of 45, creatinine 1.2, Glucose of 104, calcium is 9.2. LDH is 530. Protein electrophoresis showing possible weak monoclonal band in the gamma region, but the immunofixation electrophoresis did not see any monoclonal band. CEA is 2.2. INR is 1.1, PT of 14.6, PTT of 34.7. IMPRESSION AND PLAN: 1. Gastrointestinal bleeding. This has stabilized. She had 2 esophagogastroduodenoscopies in the gap of 1 month requiring treatment of the arteriovenous malformation in the stomach and duodenum. We will keep her on iron supplement and multivitamins, as well as continue proton pump inhibitor twice daily. She will be followed up in the office in 4 to 6 weeks. 2. Anemia. Continue to watch and transfuse as needed. She will follow up with outpatient primary doctor to follow up on the anemia and transfuse as needed. 3. Neurofibromatosis. Aware. 4. Evidence of lesions on the lungs. There is a question of neurofibromas or metastasis. This is being worked up by the primary care team. She had a CT scan with biopsy done today. 5. Physical deconditioning. She will require physical therapy. 6. Acute on chronic kidney disease, being managed by the primary care team. 7. Gastric and duodenal arteriovenous malformations. Try to avoid nonsteroidal anti-inflammatory drugs. 8. Constipation. The patient will continue MiraLAX twice daily. Discussed the above plans with the patient. All questions answered. Please call with any further questions. We will sign off at this time. The patient will follow up in the clinic in 4 to 6 weeks of discharge. cc: MD Praveen High MD MTDD
[2019-07-11 03:38] LABS: HEMATOCRIT 35.2 % (37.0-47.0); HEMOGLOBIN 10.6 g/dL (12.0-16.0)
[2019-07-11] MEDS: MORPHINE IV PRN ×4 (03:58→20:03)
[2019-07-11 07:38] LABS: BASO# 0.03 X1000 (0.0-0.2); BASO% 0.2 % (0.0-0.8); EOS# 0.14 X1000 (0.0-0.7); EOS% 1.1 % (0.0-10.0); HEMATOCRIT 36.2 % (37.0-47.0); HEMOGLOBIN 10.7 g/dL (12.0-16.0); IMM GRAN# 0.08 X1000 (0.0-0.04); IMM GRAN% 0.6 % (0.0-0.5); LYMPH# 0.65 X1000 (1.2-3.4); LYMPH% 5.1 % (20.5-51.1); MCH 25.8 PG (27-31); MCHC 29.6 g/dL (33-37); MCV 87.2 FL (81-99); MONO# 1.12 X1000 (0.11-0.59); MONO% 8.9 % (1.7-9.3); MPV 10.5 FL (7.4-10.4); NEUT# 10.61 X1000 (1.4-6.5); NEUT% 84.1 % (42.2-75.2); PLT 219 X1000 (130-400); RBC 4.15 XMIL (4.2-5.4); RDW 19.5 % (11.5-14.5); WBC 12.63 X1000 (4.8-10.8)
[2019-07-11] MEDS: VENTOLIN HFA INH PRN ×3 (08:52→21:00)
[2019-07-11 10:06] LABS: CALCIUM 8.8 mg/dL (8.8-10.2); CREATININE 1.4 mg/dL (0.5-0.9); POTASSIUM 4.9 mmol/L (3.5-5.1)
[2019-07-11] MEDS: TOPROL XL PO SCH (10:12)
[2019-07-11] MEDS: MIRALAX PO SCH (10:12)
[2019-07-11] MEDS: ICAR-C PO SCH ×2 (10:13→20:02)
[2019-07-11] MEDS: SINGULAIR PO SCH (10:13)
[2019-07-11] MEDS: CENTRUM SILVER PO SCH (10:13)
[2019-07-11] MEDS: ROCALTROL PO SCH (10:13)
[2019-07-11] MEDS: VITAMIN D PO SCH (10:13)
[2019-07-11] MEDS: PROTONIX IV SCH ×3 (10:13→22:39)
--- NOTE | 2019-07-11 13:35 | PROGRESS NOTE ---
DATE: 07/11/2019 SUBJECTIVE: Patient refers has not had any more episodes of black stools and no complaints this morning. OBJECTIVE: Vital signs: Temperature 97.8 degrees, heart rate 105, respiratory 16, blood pressure 138/80, O2 saturation 95% on room air. General: This is a 58-year-old female lying in bed, in no acute distress. Cardiovascular: S1, S2 heard. No murmurs, gallops, or rubs. Regular rate and rhythm. Respiratory: Clear bilaterally to auscultation. No work of breathing. No use of accessory muscles. Abdomen: Soft. Nontender to palpation. Bowel sounds present. No organomegaly. No signs of peritoneal irritation. Extremities: No clubbing, cyanosis, or edema. Peripheral pulses present in both legs. Skin: Multiple neurofibromas on her face. He has a very large wound extending from the right arm. Neurological: Patient is alert and oriented x3. Moves 4 extremities. LABORATORY DATA: Hemoglobin is 10.7 with a white cell count 12.63. Platelets 219,000. No BMP available. ASSESSMENT AND PLAN: 1. Gastrointestinal bleeding. Clinically, no more signs of bleeding. Hemoglobin is much more stable. She got transfused 2 units of blood yesterday and hemoglobin. 10.6. At this point, we will continue with Protonix 40 mg IV q.12 hours. Gastroenterology has been following this patient but they signed off. 2. Leukocytosis. This condition is getting better. We are not exactly this is coming from any infection or from metastasis but in any case, that is getting better. So, we will continue to monitor CBC. 3. Acute on chronic kidney disease. We will continue to monitor BMP daily. Creatinine is at baseline. 4. Physical deconditioning. Physical Therapy continues to work with this patient. 5. Disposition. My plan is to keep this patient over the weekend, and on Saturday, if hemoglobin continues to be stable, she is going to be discharged to rehab. cc: Praveen Canseco MD
[2019-07-11] MEDS: TYLENOL PO PRN (13:51)
[2019-07-11] MEDS ORDERED: MIRALAX PO PRN (15:32)
[2019-07-11] MEDS: ZOCOR PO SCH (20:02)
[2019-07-11] MEDS: SODIUM CHLORIDE 0.9% INJ SCH (20:03)
[2019-07-12 07:30] LABS: BASO# 0.04 X1000 (0.0-0.2); BASO% 0.2 % (0.0-0.8); EOS# 0.11 X1000 (0.0-0.7); EOS% 0.6 % (0.0-10.0); HEMATOCRIT 35.2 % (37.0-47.0); HEMOGLOBIN 10.3 g/dL (12.0-16.0); IMM GRAN# 0.12 X1000 (0.0-0.04); IMM GRAN% 0.7 % (0.0-0.5); LYMPH# 0.85 X1000 (1.2-3.4); MCHC 29.3 g/dL (33-37); MCV 88.9 FL (81-99); MONO# 1.38 X1000 (0.11-0.59); MPV 10.7 FL (7.4-10.4); NEUT# 14.67 X1000 (1.4-6.5); NEUT% 85.5 % (42.2-75.2); PLT 262 X1000 (130-400); RBC 3.96 XMIL (4.2-5.4); RDW 19.9 % (11.5-14.5); WBC 17.17 X1000 (4.8-10.8)
[2019-07-12 07:48] LABS: CALCIUM 9.1 mg/dL (8.8-10.2); CREATININE 1.4 mg/dL (0.5-0.9); POTASSIUM 4.6 mmol/L (3.5-5.1)
--- NOTE | 2019-07-12 08:36 | PROGRESS NOTE ---
DATE: 07/12/2019 SUBJECTIVE: The patient reports feeling fine. No more episodes of black stools. No issues noted as per nursing staff overnight. OBJECTIVE: Vital Signs: Temperature 98.1, heart rate 117, respiratory rate 24, blood pressure 132/72, O2 saturation 96% on room air. General: This is a 58-year-old, female, lying in bed in no acute distress. Cardiovascular: S1, S2 heard. No murmurs, gallops, or rubs. Regular rate and rhythm. Respiratory: Clear bilaterally to auscultation. No work of breathing or using accessory muscles. Abdomen: Soft, nontender to palpation. Bowel sounds present. No organomegaly. No signs of peritoneal irritation. Extremities: No clubbing, cyanosis, or edema. Peripheral pulses present in both legs. Neurological: The patient is alert and oriented x3. Moves all 4 extremities. Skin: Multiple neurofibromas on her face. She has a very large one extending from the right arm. LABORATORY DATA: Pending at the time of my dictation. ASSESSMENT AND PLAN: 1. Gastrointestinal bleeding. Clinically, no more signs of bleeding. The patient is on Protonix 40 mg intravenously every 12 hours. Hemoglobin is stable from yesterday at 10.6. We do not have results today, but will continue to monitor. 2. Leukocytosis. I think from yesterday that leukocytosis is getting better. 3. Acute on chronic kidney disease. Creatinine is at baseline. 4. Physical deconditioning. Physical Therapy continues to work with the patient. 5. Disposition. The patient's hemoglobin has been stable, so will plan to send this patient to rehab tomorrow. cc: Praveen Canseco MD MTDD
[2019-07-12] MEDS: VENTOLIN HFA INH PRN ×2 (08:49→16:29)
[2019-07-12] MEDS: SODIUM CHLORIDE 0.9% INJ SCH ×2 (10:19→21:37)
[2019-07-12] MEDS: PROTONIX IV SCH ×2 (10:19→21:37)
[2019-07-12] MEDS: MORPHINE IV PRN ×3 (10:19→18:54)
[2019-07-12] MEDS: TOPROL XL PO SCH (10:20)
[2019-07-12] MEDS: ROCALTROL PO SCH (10:20)
[2019-07-12] MEDS: SINGULAIR PO SCH (10:20)
[2019-07-12] MEDS: CENTRUM SILVER PO SCH (10:20)
[2019-07-12] MEDS: ICAR-C PO SCH ×2 (10:20→21:37)
[2019-07-12] MEDS: VITAMIN D PO SCH (10:20)
--- NOTE | 2019-07-12 16:59 | Diag Imaging Result Doc PS360 ---
EXAM: CHEST-1 VIEW 07/12/2019 HISTORY: sepsis protocol TECHNIQUE: AP portable semiupright at 1648 COMMENT: There is alveolar opacity throughout both lungs. The inspiration is better than on 07/09/2019 and considering this there has been no appreciable change.There has certainly been worsening since the previous study of 07/08/2019. IMPRESSION: Pulmonary edema versus pneumonia. Electronically signed by Cyril Delgado 07/12/2019 4:56 PM
[2019-07-12] MEDS: TYLENOL PO PRN (18:01)
[2019-07-12 18:07] LABS: INR 1.05; PROTIME 13.9 Seconds (11.0-16.0)
[2019-07-12 18:10] LABS: BASO# 0.04 X1000 (0.0-0.2); BASO% 0.2 % (0.0-0.8); EOS# 0.09 X1000 (0.0-0.7); EOS% 0.5 % (0.0-10.0); HEMATOCRIT 31.3 % (37.0-47.0); IMM GRAN# 0.16 X1000 (0.0-0.04); IMM GRAN% 0.9 % (0.0-0.5); LYMPH# 0.77 X1000 (1.2-3.4); LYMPH% 4.3 % (20.5-51.1); MCH 25.8 PG (27-31); MCHC 28.8 g/dL (33-37); MCV 89.7 FL (81-99); MONO# 1.65 X1000 (0.11-0.59); MONO% 9.2 % (1.7-9.3); MPV 10.7 FL (7.4-10.4); NEUT# 15.32 X1000 (1.4-6.5); NEUT% 84.9 % (42.2-75.2); PLT 264 X1000 (130-400); RBC 3.49 XMIL (4.2-5.4); WBC 18.03 X1000 (4.8-10.8)
[2019-07-12 18:14] LABS: ALB/GLOB RATIO 0.7; ALBUMIN 2.5 g/dL (3.5-5.0); CREATININE 1.4 mg/dL (0.5-0.9); POTASSIUM 5.1 mmol/L (3.5-5.1); TOTAL BILIRUBIN 0.66 mg/dL (0.20-1.00); TOTAL PROTEIN 5.9 g/dL (6.3-8.3)
[2019-07-12] MEDS: ZOCOR PO SCH (21:37)
[2019-07-13] MEDS: MORPHINE IV PRN (01:52)
[2019-07-13] MEDS: ZOSYN 3.375 GM in NS 50 ML IV SCH ×4 (01:56→20:57)
[2019-07-13] MEDS: ZYVOX 600 MG/D5W 600 MG/300 ML IVPB IV SCH ×2 (02:38→14:16)
[2019-07-13] MEDS: TYLENOL PO PRN (05:17)
[2019-07-13] MEDS ORDERED: LASIX IV ONE (05:27)
[2019-07-13] MEDS: VENTOLIN HFA INH SCH ×4 (07:52→19:54)
--- NOTE | 2019-07-13 08:01 | PROGRESS NOTE ---
DATE: 07/13/2019 SUBJECTIVE: The patient, even though she reports breathing better, she looks short of breath to me and tachypneic, definitely more in comparing with yesterday. She denies any episodes of black stools. As per nursing staff, she has been struggling breathing last night. OBJECTIVE: Vital Signs: Temperature 98.2 degrees, heart rate 122, respiratory rate 22, blood pressure 113/69, O2 saturation 90% on 2 L nasal cannula. General Examination: This is a 58-year- old, female lying in bed, in no acute distress. Cardiovascular Examination: S1 and S2 heard. No murmurs, gallops, or rubs. Regular rate and rhythm. Respiratory Examination: Coarse breath sounds noted in both pulmonary bases with mild wheezing. Patient is not using any accessory muscles or having work of breathing. Abdomen: Soft, nontender to palpation. Bowel sounds present. No organomegaly. No signs of peritoneal irritation. Extremities: No clubbing, cyanosis, or edema. Peripheral pulses present in both legs. Neurological Examination: The patient is alert and oriented x3. Moves 4 extremities. Skin: Multiple neurofibromas on her face and she has a very large one extending from the right arm. Laboratory Data: Pending at time of dictation but from yesterday, white cell count is 18.03. ASSESSMENT AND PLAN: 1. Gastrointestinal bleeding. Clinically, that condition looks to be resolved with hemoglobin that from the day before yesterday to yesterday dropped a little bit, 1 point. We will see what the CBC today shows. 2. Acute respiratory failure secondary to pneumonia. There is a leukocytosis that is getting worse. The patient's respiratory status got worse as well, getting short of breath. During the last few days, she has been requiring 2 L of oxygen by nasal cannula but now she is saturating in the 80s with that amount of oxygen. In any case, we are going to start antibiotics, broad-spectrum. We will change the breathing treatments to every 4 hours as scheduled. We will check the results of the CBC today. We will transfer the patient to PVC unit to monitor her closely. We will consult pulmonary. 3. Acute on chronic kidney disease stage 1. Creatinine is at baseline. We will continue checking BMP daily while she is in the hospital. 4. Physical deconditioning. Physical therapy continues to work with the patient. 5. Disposition. Patient is not improving. Actually, she is having this pneumonia. We will treat her accordingly. We will continue to monitor this patient closely. cc: Praveen Canseco MD
[2019-07-13 08:05] LABS: BASO# 0.04 X1000 (0.0-0.2); BASO% 0.2 % (0.0-0.8); EOS# 0.05 X1000 (0.0-0.7); EOS% 0.3 % (0.0-10.0); HEMATOCRIT 29.2 % (37.0-47.0); HEMOGLOBIN 8.2 g/dL (12.0-16.0); IMM GRAN# 0.21 X1000 (0.0-0.04); IMM GRAN% 1.1 % (0.0-0.5); LYMPH# 0.79 X1000 (1.2-3.4); MCH 25.4 PG (27-31); MCHC 28.1 g/dL (33-37); MCV 90.4 FL (81-99); MONO# 1.34 X1000 (0.11-0.59); MONO% 6.7 % (1.7-9.3); MPV 10.9 FL (7.4-10.4); NEUT# 17.46 X1000 (1.4-6.5); NEUT% 87.7 % (42.2-75.2); PLT 267 X1000 (130-400); RBC 3.23 XMIL (4.2-5.4); RDW 20.2 % (11.5-14.5); WBC 19.89 X1000 (4.8-10.8)
[2019-07-13 08:13] LABS: CALCIUM 8.5 mg/dL (8.8-10.2); CREATININE 1.7 mg/dL (0.5-0.9); POTASSIUM 5.2 mmol/L (3.5-5.1)
[2019-07-13 08:15] LABS: MONO 4 % (1-9); SEGS 96 % (42-75)
[2019-07-13] MEDS: SODIUM CHLORIDE 0.9% INJ SCH ×2 (09:20→20:57)
[2019-07-13] MEDS: PROTONIX IV SCH ×2 (09:20→20:57)
[2019-07-13] MEDS: TOPROL XL PO SCH (09:21)
[2019-07-13] MEDS: ICAR-C PO SCH ×2 (09:22→20:57)
[2019-07-13] MEDS: CENTRUM SILVER PO SCH ×2 (09:22→13:55)
[2019-07-13] MEDS: ROCALTROL PO SCH (09:22)
[2019-07-13] MEDS: VITAMIN D PO SCH (09:22)
[2019-07-13] MEDS: SINGULAIR PO SCH (09:22)
[2019-07-13] MEDS: ZOCOR PO SCH (20:57)
[2019-07-14] MEDS: ZYVOX 600 MG/D5W 600 MG/300 ML IVPB IV SCH ×2 (02:27→14:09)
[2019-07-14] MEDS: ZOSYN 3.375 GM in NS 50 ML IV SCH ×2 (02:27→08:10)
[2019-07-14] MEDS: VENTOLIN HFA INH SCH ×6 (03:51→19:52)
[2019-07-14 06:53] LABS: BASO# 0.04 X1000 (0.0-0.2); BASO% 0.1 % (0.0-0.8); EOS# 0.03 X1000 (0.0-0.7); EOS% 0.1 % (0.0-10.0); HEMATOCRIT 27.4 % (37.0-47.0); HEMOGLOBIN 7.7 g/dL (12.0-16.0); IMM GRAN# 0.34 X1000 (0.0-0.04); IMM GRAN% 1.1 % (0.0-0.5); LYMPH# 1.19 X1000 (1.2-3.4); MCH 25.7 PG (27-31); MCHC 28.1 g/dL (33-37); MCV 91.3 FL (81-99); MONO# 2.19 X1000 (0.11-0.59); MONO% 7.4 % (1.7-9.3); MPV 10.8 FL (7.4-10.4); NEUT# 25.91 X1000 (1.4-6.5); NEUT% 87.3 % (42.2-75.2); PLT 329 X1000 (130-400); RDW 21.1 % (11.5-14.5)
--- NOTE | 2019-07-14 07:45 | Diag Imaging Result Doc PS360 ---
CHEST-2 VIEWS - 07/14/2019 INDICATION: pulmonary edema vs pna COMPARISON: 07/12/2019 FINDINGS: There are grossly stable extensive bilateral heterogeneous infiltrates that are indeterminate. There are small pleural effusions. Heart size is grossly normal. IMPRESSION: No change from prior. Electronically signed by Juwan Calhoun 07/14/2019 7:43 AM
[2019-07-14 08:05] LABS: CALCIUM 8.1 mg/dL (8.8-10.2); CREATININE 2.8 mg/dL (0.5-0.9); POTASSIUM 4.9 mmol/L (3.5-5.1)
[2019-07-14] MEDS: ROCALTROL PO SCH (08:11)
[2019-07-14] MEDS: TOPROL XL PO SCH (08:11)
[2019-07-14] MEDS: VITAMIN D PO SCH (08:11)
[2019-07-14] MEDS: SINGULAIR PO SCH (08:11)
[2019-07-14] MEDS: ICAR-C PO SCH ×2 (08:11→20:47)
[2019-07-14] MEDS: CENTRUM SILVER PO SCH (08:11)
[2019-07-14] MEDS: SODIUM CHLORIDE 0.9% INJ SCH ×2 (08:16→20:47)
[2019-07-14] MEDS: PROTONIX IV SCH ×2 (08:16→20:47)
[2019-07-14] MEDS: LEVAQUIN PO SCH (10:23)
[2019-07-14] MEDS: MERREM 1 GM in NS 50 ML IV SCH ×2 (10:23→20:47)
--- NOTE | 2019-07-14 11:05 | PROGRESS NOTE ---
DATE: 07/14/2019 SUBJECTIVE: The patient reports she is not breathing better today. She looks tachypneic. Not getting better definitely comparing with yesterday. No more episodes of black stools. OBJECTIVE: Vital Signs: Temperature 98.3 degrees, heart rate 117, respiratory rate 19, blood pressure 96/44, O2 saturation 95% on 3 L nasal cannula. General: This is a 58-year-old, female, lying in bed in no acute distress. Cardiovascular: S1, S2 heard. No murmurs, gallops, or rubs. Regular rate and rhythm. Respiratory: Coarse breath sounds and some wheezing noted in both pulmonary olivarez. The patient is not using any accessory muscles or having work of breathing. Abdomen: Soft, nontender to palpation. Bowel sounds present. No organomegaly. No signs of peritoneal irritation. Extremities: No clubbing, cyanosis, or edema. Peripheral pulses present in both legs. Neurological: The patient is alert and oriented x3. Moves all 4 extremities. Skin: Multiple neurofibromas of her face, and she has a large one extending from the right arm. LABORATORY DATA: White cell count is 29.7, hemoglobin 7.7, hematocrit 27.4, platelets 329,000. Creatinine is 2.8 today. ASSESSMENT AND PLAN: 1. Gastrointestinal bleeding. That condition clinically looks resolved. The hemoglobin has dropped some from 8.8 to 7.7. In any case, will continue to monitor CBC daily. 2. Acute respiratory failure secondary to pneumonia. Leukocytosis continues to get worse, although the patient continues to require the same amount of oxygen. At this point, the patient has been started on Zosyn and Zyvox. Considering that she is not improving, with elevated white cell count, I prefer to consult Infectious Disease, and will follow recommendations. 3. Acute on chronic kidney disease stage 1. Creatinine continues to get worse. The patient has received Lasix for pulmonary edema. At this point, will continue to monitor BMP daily. 4. Physical deconditioning. Physical Therapy continues to work with this patient. 5. Disposition. At this point, the patient is not improving, has a pneumonia with worsening leukocytosis. 6. Will continue to monitor this patient closely. 7. Disposition. The patient is not improving. Actually, her pneumonia is getting worse. Will continue to monitor. Addendum: We have called Pathology and apparently the lung biopsy showed malignancy but finally report is not back yet. Will notify Oncology to see if there is anything we can do for this patient since their standpoint considering she is clinically getting worse. cc: MD PALOMA Garvey
[2019-07-14] MEDS ORDERED: ZOFRAN IV PRN (13:52)
[2019-07-14] MEDS: MYCOSTATIN SUSP PO SCH ×3 (14:09→20:47)
--- NOTE | 2019-07-14 15:38 | HEMO/ONC PROGRESS NOTE ---
DATE: 07/14/2019 CHIEF COMPLAINT: "I want food." HISTORY OF PRESENT ILLNESS: Ms. Vázquez is seen today for follow-up of her recent biopsy of the lung. She is not having any chest pain post biopsy. She denies any fevers or chills overnight. She is hungry and wants something more than Jell-O. PHYSICAL EXAMINATION: VITAL SIGNS: Temperature 97.4, pulse 106, respiratory rate 16, blood pressure 108/65, O2 saturation 96% on 3 L nasal cannula. General: This is a chronically ill- appearing woman in no acute distress. HEENT: Eyes sclerae anicteric. Conjunctiva pale. Cardiovascular: Tachycardic, but regular rhythm. No murmurs, rubs, or gallops. Pulmonary: Coarse bilateral breath sounds. No wheezes, rales, or rhonchi. Gastrointestinal: Soft, nontender, nondistended with normoactive bowel sounds. LABORATORY DATA: White count 19.9, hemoglobin 8.2, platelet count 267,000, with 96 segs, 4 monos. Potassium 5.2, creatinine 1.7, calcium 8.5. 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 Special stains pending. ASSESSMENT AND PLAN: 1. Suspected metastatic carcinoma of unknown primary: I have reviewed her case with pathology. Lung biopsy was successful. Final pathology should be back tomorrow afternoon. We will follow up on those results once they are available. Her CEA was normal at 2.2. Her LDH was elevated at 530. Continue to monitor. 2. Iron deficiency anemia: Her iron saturation was previously low. She is status post transfusion of 4 units of packed red blood cells. Her hemoglobin is overall stable today. Continue to monitor and transfuse as needed. 3. Chronic kidney disease: Her creatinine is up a bit today at 1.7. Monitor and avoid nephrotoxic agents. cc: Pili Rosado MD MTDD
--- NOTE | 2019-07-14 16:26 | INFECTIOUS DISEASE CONSULT REP ---
DATE: 07/14/2019 CONCLUSION: The patient has bilateral diffuse infiltrates in both lungs. I just got off the phone with Dr. Hernández and he said that based on a lung biopsy done last week he can definitely say the patient has bilateral cancer. The exact type of cancer is still pending. The patient's white blood cell count is continually increasing. I think it could be due to the fact that the patient has a malignancy, but also it could possibly be due that the patient has developed a superimposed infection involving both lungs. The patient has oral candidiasis. RECOMMENDATIONS: As mentioned above, the patient has a malignancy in both lungs. It is diffuse. In case the patient has a superimposed infection, I think it is reasonable to continue antibiotics for a few days to see if it makes any difference either in the chest x-ray or if the white blood cell count comes down. I agree with giving the patient Zyvox. I have substituted meropenem for Zosyn and I have also added Levaquin. Some of the side effects of the antibiotics, including rash, diarrhea, seizures, tendon rupture and hematotoxicity have been explained to the patient. She agrees with treating with antibiotics. I have started the patient on nystatin swish and swallow for her oral candidiasis. DISCUSSION: The patient said that for the past 2 to 3 months she has had increasing dyspnea but no fever, chills or coughing up any sputum. She also tells me that she has become very weak in the past 4 months the point that she cannot walk. As I mentioned above, the patient last week did have a lung biopsy with the results as mentioned above. The patient has not had any fever or chills. However, since being in the hospital, her white blood cell count is progressively increasing. Today it was 29,700. REVIEW OF SYSTEMS: Eyes and ears: Her hearing and vision are good. Neck: No stiffness. Respiratory: See present illness. Cardiac: No chest pain or palpitations. GI: No nausea, vomiting, or diarrhea. : No dysuria or flank pain. Neurologic: No seizures. The patient as mentioned above is very weak and she states she is unable to walk in the past 4 months. 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 She has had a hysterectomy. PREVIOUS HOSPITALIZATIONS AND OPERATIONS: The patient has had a hysterectomy. She has also had needle lung biopsies. MEDICAL DISEASES: Positive for leiomyosarcoma and neurofibromatosis. Hyperlipidemia, gastroesophageal reflux disease and chronic obstructive pulmonary disease. INFECTIOUS DISEASE HISTORY: Negative for pneumonia and UTI. FAMILY HISTORY: Positive for diabetes mellitus, hypertension, and myocardial infarction. SOCIAL HISTORY: The patient lives in assisted living. She lives alone. She does not smoke cigarettes, drink alcoholic beverages or abuse drugs. She does not have any pets, although when she was not in assisted living she had cats, dogs and a hamster for pets. Patient denies smoking cigarettes, drinking alcoholic beverages or abusing drugs . MEDICATIONS: Patient's medicines that she takes at home include albuterol inhaler, Lasix, metoprolol, Singulair, vitamins and minerals, omeprazole, simvastatin and tramadol. PHYSICAL EXAMINATION: Vital Signs: Temperature is 97.3 degrees, pulse 114, respirations 18, blood pressure 96/44. General: This is a chronically ill-appearing middle-aged female. She is in no acute distress lying in bed. Head/eyes/ears/nose/throat: She can hear my spoken words and see near objects. She has a white coating on her tongue. Neck: No meningismus. Lungs: Clear to auscultation. Cardiovascular: Heart rate is regular. Abdomen: Soft, nontender. Integument: Patient has multiple neurofibromas. Neurologic: Patient is alert. She can move her extremities but she is weak. There is no tremor. Her memory as regarding her medical history was poor. Thank you for the consult. cc: Cooper Matias MD [facility]
[2019-07-14] MEDS: ZOCOR PO SCH (20:47)
[2019-07-15] MEDS: ZYVOX 600 MG/D5W 600 MG/300 ML IVPB IV SCH ×2 (05:46→18:05)
[2019-07-15] MEDS: VENTOLIN HFA INH SCH ×6 (06:39→23:15)
[2019-07-15 07:14] LABS: BASO# 0.11 X1000 (0.0-0.2); BASO% 0.2 % (0.0-0.8); EOS# 0.01 X1000 (0.0-0.7); HEMATOCRIT 25.9 % (37.0-47.0); HEMOGLOBIN 7.2 g/dL (12.0-16.0); IMM GRAN# 0.81 X1000 (0.0-0.04); IMM GRAN% 1.7 % (0.0-0.5); LYMPH# 3.08 X1000 (1.2-3.4); LYMPH% 6.4 % (20.5-51.1); MCH 25.7 PG (27-31); MCHC 27.8 g/dL (33-37); MCV 92.5 FL (81-99); MONO# 4.13 X1000 (0.11-0.59); MONO% 8.6 % (1.7-9.3); MPV 10.7 FL (7.4-10.4); NEUT# 40.09 X1000 (1.4-6.5); NEUT% 83.1 % (42.2-75.2); PLT 411 X1000 (130-400); RDW 22.1 % (11.5-14.5); WBC 48.23 X1000 (4.8-10.8)
[2019-07-15 08:04] LABS: BANDS 4 % (0-1); CALCIUM 8.2 mg/dL (8.8-10.2); CREATININE 4.1 mg/dL (0.5-0.9); LYMPHS 2 % (21-51); NRBC 1 % (0-0); SEGS 84 % (42-75)
[2019-07-15] MEDS: SINGULAIR PO SCH (08:22)
[2019-07-15] MEDS: ROCALTROL PO SCH (08:22)
[2019-07-15] MEDS: MERREM 1 GM in NS 50 ML IV SCH ×2 (08:22→21:11)
[2019-07-15] MEDS: ICAR-C PO SCH ×2 (08:22→21:12)
[2019-07-15] MEDS: SODIUM CHLORIDE 0.9% INJ SCH ×2 (08:22→21:11)
[2019-07-15] MEDS: TOPROL XL PO SCH (08:22)
[2019-07-15] MEDS: CENTRUM SILVER PO SCH (08:23)
[2019-07-15] MEDS: VITAMIN D PO SCH (08:23)
[2019-07-15] MEDS: MYCOSTATIN SUSP PO SCH ×4 (08:23→21:12)
[2019-07-15] MEDS: PROTONIX IV SCH ×2 (08:23→21:11)
[2019-07-15] MEDS: LEVAQUIN PO SCH (08:32)
[2019-07-15] MEDS ORDERED: NS 500 ML IV ONE (09:10)
--- NOTE | 2019-07-15 11:30 | PROGRESS NOTE ---
DATE: 07/15/2019 SUBJECTIVE: The patient definitely looks much worse to me. She is more tachypneic. She is more encephalopathic. Able still to have a conversation with me. OBJECTIVE: Vital Signs: Temperature 98 degrees, heart rate 123, respiratory rate 24, blood pressure 84/55, O2 saturation 94% on 3 L nasal cannula. General: This is a chronically ill- looking, 58-year-old, female, lying in bed in mild respiratory distress. Cardiovascular: S1, S2 heard. Tachycardic. No murmurs, gallops, or rubs noted. Respiratory: Coarse breath sounds and wheezing all over both pulmonary olivarez, a little bit worse in comparing with yesterday. The patient is not using any accessory muscles or having work of breathing. Abdomen: Soft, nontender to palpation. Bowel sounds present. No organomegaly. No signs of peritoneal irritation. Extremities: No clubbing, cyanosis, or edema. Peripheral pulses present in both legs. Neurological: The patient is definitely more sleepy and lethargic. Moves all 4 extremities. Able to have a coherent conversation with me. Skin: Multiple neurofibromas on her face, and she has a large one extending from the right arm. LABORATORY DATA: White cell count is 48.23, hemoglobin 7.2, hematocrit 25.9, platelets 411,000. Creatinine 4.1, sodium 135. ASSESSMENT AND PLAN: 1. Acute hypoxemic respiratory failure secondary to pneumonia. Leukocytosis continues to get worse. The patient has been began on Zyvox, meropenem, and Levaquin. Dr. Matias is following this patient. We are not completely sure that this leukocytosis is coming only from the pneumonia. With this elevated high number, it could be related to the underlying lung malignancy that this patient has. In any case, will continue with the same management. 2. Acute on chronic kidney disease stage 1. Creatinine continues to get worse. Will continue to monitor this patient closely, and will consult Nephrology. 3. Gastrointestinal bleeding. The patient's hemoglobin has dropped to 7.2. We are going to transfuse 1 unit of blood. 4. Physical deconditioning. At this point, I do not think this patient is a candidate for any physical therapy. 5. Disposition. The patient is definitely getting much worse with multiorgan failure, including acute respiratory failure and worsening renal failure. Also, there is encephalopathy, and her white cell count is elevated. Will continue with Pravachol for sepsis. We have talked with his sister, who is the Power of Sprinkler Fitter Helper, and her and the patient were okay to change code status to DO NOT RESUSCITATE level 1. Will continue treating her for at least a couple of days to see if there is any improvement. If not, probably will pursue to comfort care measures only. Palliative Care will be consulted. Will follow recommendations. cc: Praveen Canseco MD
[2019-07-15] MEDS ORDERED: NS 1,000 ML IV ONE (16:36)
[2019-07-15] MEDS: NS 1,000 ML IV SCH (18:05)
--- NOTE | 2019-07-15 18:16 | INFECTIOUS DISEASE PROGRESS NO ---
DATE: 07/15/2019 SUBJECTIVE: The patient has bilateral diffuse pulmonary infiltrates, which is due to a malignancy, which has not yet been identified as to which specific malignancy is causing it. She does have marked leukocytosis which may all be due to her having her malignancy, but I think it is a possibility that she has a superimposed infection as well as the Pulmonary malignancy. I think the patient could have oral candidiasis. MEDICATIONS: The patient is on a combination of Zyvox for 3 days, meropenem, and Levaquin for 2 days. The patient also is receiving nystatin swish and swallow for possible oral candidiasis. PHYSICAL EXAMINATION: Vital Signs: Temperature is 98 degrees, pulse 119, respirations 22, and blood pressure 84/55. General: This is a chronically ill-appearing and dyspneic middle-aged female. Head/eyes/ears/nose/throat: No drainage is noted from the nose or the ears. She does have a whitish orange coating on her tongue. Neck: No pain with movement. Lungs: There were bilateral rales. Cardiovascular: Heart rate is regular and rapid. Abdomen: Soft and nontender. Extremities: Patient has bilateral leg edema. Integument: Patient has numerous neurofibromas all over her body. Neurologic: The patient is somewhat lethargic now. She can move her extremities, but she is very weak. She does not have a tremor. The patient's memory as regarding her medical history was poor. LABORATORY AND X-RAY: CBC shows a white count now is increased to 48,230, hemoglobin 7.2, and platelet count 411,000, creatinine is 4.1. GFR is 11. Blood cultures are negative. There is no new radiographic study for today, but the one done yesterday showed diffuse infiltrates bilaterally. ASSESSMENT AND PLAN: The patient has a diffuse malignancy in both lungs. I think it is possible that she may also have developed a superimposed infection in her lungs. My plan is to continue with the current antibiotics, and if the white blood cell count does not come down and/or if the chest x-ray does not improve, I will stop the antibiotics and assume all of the problem is due to the bilateral lung malignancy. COMORBIDITIES: The patient has had a leiomyosarcoma, and she also has neural fibromatosis. She also has gastroesophageal reflux disease and chronic obstructive pulmonary disease. cc: Cooper Matias MD
[2019-07-15] MEDS: ZOCOR PO SCH (21:12)
[2019-07-16] MEDS: MORPHINE IV PRN ×2 (00:01→08:20)
[2019-07-16] MEDS: VENTOLIN HFA INH SCH ×2 (03:04→08:54)
--- NOTE | 2019-07-16 03:55 | NEPHROLOGY CONSULTATION ---
DATE: 07/15/2019 REASON FOR ADMISSION: Rectal bleeding x2 weeks prior to admission. REASON FOR CONSULT: Acute kidney injury on chronic kidney disease stage 3. Baseline creatinine 1.7. REQUESTING PHYSICIAN: Dr. Lennon. HISTORY OF PRESENT ILLNESS: Ms. 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 She had presented to [facility] with rectal bleeding x2 weeks. She recently had been discharged on the for GI bleed secondary to peptic ulcers and duodenal ulcers, followed by GI. The patient is anemic. Her hemoglobin was 7 with a hematocrit of 27. Upon admission, she was found to have a white cell count of 14,000; creatinine of 2.1, with a baseline down to 1.3 on discharge. 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 She has a history of hypertension, diverticulosis and anemia of chronic disease. During her hospitalization, her white count has continued to elevate. It is at 48.23 today. They have listed minimal urine output in the last 24-48 hours. She has a Lopez catheter in place. Dr. Matias has been consulted for sepsis, though he has indicated that this may be related to both sepsis and metastasis to bilateral lungs. [facility] continues to monitor and follow the patient, with known history of leiomyosarcoma, high grade, with resection and radiation in 2009. According to primary care note, the patient has continued to worsen and weaken over the last 48-72 hours. She is able to open her eyes and respond yes/no, otherwise she is unable to assist with review of systems. At this point she denies any chest pain. Positive for weakness. Positive for increased work of breathing. She is tachypneic at the time of the interview. At this time her family has made her a DNR level 1 this morning, with possible referral to Palliative Care either today or in the a.m. Her vital signs have been negative for fever during her hospitalization. She has been hypotensive, with fluid volume resuscitation. Last blood pressure at the time of interview had been 82/38 while receiving blood with fluid volume. She at this point is actually 12 L positive. We will check a renal ultrasound to detect if there is any obstruction. PAST MEDICAL HISTORY: neurofibromatosis; leiomyosarcoma with high grade, resected and followed with radiation therapy in 2009; hypertension; diverticulosis; diabetes; chronic renal failure; chronic renal insufficiency with baseline creatinine of 1.3-1.7. SOCIAL HISTORY: The patient currently resides in assisted living at the [facility]. She had denied any tobacco or alcohol, or any illicit drug use on previous notes and at this time. FAMILY HISTORY: No cancer history except for patient. No acute/chronic kidney injury. PAST SURGICAL HISTORY: She is listed as post hysterectomy, tonsillectomy, parathyroidectomy, previous colonoscopy, previous lung biopsy recently completed. ALLERGIES: Listed as no known drug allergies. HOME MEDICATIONS: Calcitriol, vitamin D3, Lasix, metoprolol, Singulair, sennosides, Senokot, simvastatin, ProAir HFA, Icar-C, Centrum Silver, Ultram and omeprazole. REVIEW OF SYSTEMS: Unable to obtain complete ROS secondary to patient drifting off to sleep during exam. ROS completed with assistance with previous HPI and consults. PHYSICAL EXAMINATION: PHYSICAL EXAMINATION: The patient's current vital signs: Temperature 98.6 degrees, blood pressure 82/38, heart rate 109, respirations 24. She has had 740 in. She has had 0 recorded out. She appears to be 12 L positive since her hospitalization. On physical exam, this is a 58-year-old white female who appears chronically ill and lethargic. There is no one at the bedside. She is in no acute distress. Skin is warm and dry.HEENT: Normocephalic, atraumatic. Conjunctivae are pale. She has RUSSELL. Mucous membranes are very dry. Neck is supple. Trachea midline. No evidence of JVD. Cardiovascular: She is regular rate and rhythm. S1, S2 auscultated. No gallop appreciated. Lungs: Poor inspiratory effort. She is tachypneic, remains on 100% nonrebreather. Abdomen soft. No tenderness noted. Positive bowel sounds, hypoactive. Genitourinary: Lopez catheter is in place. Minimal urine out has been documented. Extremities show no edema. No clubbing or cyanosis. Neurological: She is alert, though minimal verbal response. LABORATORY DATA: Sodium is 135, potassium 5, chloride 98, CO2 is 16, BUN 97, creatinine 4.1, glucose 154, anion gap is 17. Her calcium is 8.1. White count this a.m. 48.23, hemoglobin 7.2, hematocrit 25.9 with a platelet count of 411,000. She has negative blood cultures. ASSESSMENT AND PLAN: 1. Acute kidney injury on chronic kidney disease. More than likely this is ATN secondary to multifactorial issues. The patient is currently oliguric. She is septic. She has had hypotension. She has had active gastrointestinal bleed. She has had positive fluid resuscitation with a 12 L fluid balance in the positive side. We will check a renal ultrasound to determine for any blockage and compare to her CT of the abdomen and pelvis upon admission. 2. Electrolytes. These are stable. 3. Acid-base balance contributing to #1. We will monitor. The patient appears not to be swallowing well. 4. Gastrointestinal bleed. The patient has a drop in her hemoglobin. Hemoglobin is 7.2 today. She is currently getting 1 unit of packed red blood cells. 5. Septicemia. Dr. Matias has been consulted. She is currently on renal-dosed antibiotics. This may be felt that part of this leukocytosis may be related to her malignancy to bilateral lungs. 6. Encephalopathy. Minimal conversation held. The patient has been made a Do Not Resuscitate/Allow Natural level 1. Her sister has power of flag signalman, with Palliative Care consult on the chart. We will order urine electrolytes. Check a renal ultrasound as indicated, and evaluate labs in the a.m. We would like to thank you for allowing us to follow with this patient. Dictated by MESERET Bazan for Mario Thornton MD cc: MESERET Bazan MD [facility]
[2019-07-16] MEDS: NS 1,000 ML IV SCH (04:08)
[2019-07-16] MEDS: ZYVOX 600 MG/D5W 600 MG/300 ML IVPB IV SCH (06:07)
[2019-07-16 07:36] LABS: BASO# 0.17 X1000 (0.0-0.2); BASO% 0.4 % (0.0-0.8); EOS# 0.04 X1000 (0.0-0.7); EOS% 0.1 % (0.0-10.0); HEMATOCRIT 30.9 % (37.0-47.0); HEMOGLOBIN 9.4 g/dL (12.0-16.0); IMM GRAN% 1.4 % (0.0-0.5); LYMPH# 3.13 X1000 (1.2-3.4); LYMPH% 7.5 % (20.5-51.1); MCH 29.1 PG (27-31); MCHC 30.4 g/dL (33-37); MCV 95.7 FL (81-99); MONO# 3.29 X1000 (0.11-0.59); MONO% 7.9 % (1.7-9.3); MPV 11.1 FL (7.4-10.4); NEUT# 34.65 X1000 (1.4-6.5); NEUT% 82.7 % (42.2-75.2); PLT 150 X1000 (130-400); RBC 3.23 XMIL (4.2-5.4); RDW 20.9 % (11.5-14.5); WBC 41.88 X1000 (4.8-10.8)
[2019-07-16 08:09] LABS: CALCIUM 7.7 mg/dL (8.8-10.2); CREATININE 4.6 mg/dL (0.5-0.9); PHOSPHORUS 3.6 mg/dL (2.7-4.5); POTASSIUM 5.7 mmol/L (3.5-5.1)
[2019-07-16] MEDS ORDERED: ATIVAN IV PRN (09:13)
[2019-07-16] MEDS ORDERED: MORPHINE IV PRN (09:13)
[2019-07-16] MEDS: CENTRUM SILVER PO SCH (11:49)
[2019-07-16] MEDS: LEVAQUIN PO SCH (11:50)
[2019-07-16] MEDS: MYCOSTATIN SUSP PO SCH (11:50)
[2019-07-16] MEDS: ICAR-C PO SCH (11:50)
[2019-07-16] MEDS: SINGULAIR PO SCH (11:51)
[2019-07-16] MEDS: VITAMIN D PO SCH (11:51)
[2019-07-16] MEDS: ROCALTROL PO SCH (11:51)
--- NOTE | 2019-07-16 12:31 | PROGRESS NOTE ---
DATE: 07/16/2019 SUBJECTIVE: Patient continues to get worse. She is definitely more tachypneic than yesterday morning, and encephalopathic although she is able to answer very simple questions. OBJECTIVE: Vital Signs: Temperature 98.6, heart rate 120 respiratory rate 28, blood pressure 116/62, and O2 saturation 98% on non-rebreather mask at 15 L/minute. General: This is a chronically ill-looking, 58-year-old, female lying in bed in moderate respiratory distress tachypneic. Cardiovascular: S1, S2 heard. Tachycardic. No murmurs, gallops, or rubs noted. Respiratory: Coarse breath sounds and rhonchi with some wheezing noted all over both pulmonary olivarez definitely much worse in comparing with yesterday. Patient is using some accessory muscles. Patient has labored breathing. Abdomen: Soft. Nontender to palpation. Bowel sounds present. No organomegaly. No signs of peritoneal irritation. Extremities: No clubbing, cyanosis, or edema. Peripheral pulses present in both legs. Neurological: The patient is definitely more sleepy and lethargic. Moves all 4 extremities. Skin: Multiple neurofibromas on her face, and she has a large one extending from the right arm. LABORATORY DATA: White cell count 14, 1.38, hemoglobin 9.4, hematocrit 30.9, and platelets 150,000 with creatinine 4.6, and potassium 5.7. ASSESSMENT AND PLAN: 1. Acute hypoxemic respiratory failure secondary to pneumonia. 2. Lung metastasis. 3. Acute on chronic kidney disease stage 1. 4. Gastrointestinal bleeding. 5. Physical deconditioning. 6. At this point, all of her medical conditions are getting worse. She is in respiratory distress and worsening renal failure. 7. Metabolic encephalopathy. At this point, the family has decided to move to comfort care measures only. We are going to provide morphine and Ativan p.r.n. We will consult hospice. I do not think this patient is able to go home so most likely she will be needed to be admitted to inpatient hospice. We will continue to monitor this patient closely. cc: Praveen Canseco MD
--- NOTE | 2019-07-16 14:19 | INFECTIOUS DISEASE PROGRESS NO ---
DATE: 07/16/2019 PRESENT ILLNESS: The patient has diffuse pulmonary infiltrates, which I think are due to her malignancy, which has not yet been identified as to which specific malignancy she has. I doubt that the patient has an infection in her lungs. The patient also has oral candidiasis. MEDICATIONS: The patient has been on Zyvox for 4 days, meropenem and Levaquin for 3 days. She also is getting nystatin swish and swallow for possible oral candidiasis. PHYSICAL EXAMINATION: Vital Signs: Temperature is 97.5 degrees, pulse 111, respirations 18, blood pressure 82/49. General: This is a chronically ill and acutely dyspneic middle-aged female. She does appear to be dyspneic, even at rest. Head/Eyes/Ears/Nose/Throat: There is no drainage from her nose or ears. There is decreased white coating of her tongue. Neck: No stiffness. Lungs: Bilateral rales. Cardiovascular: Heart rate is regular and rapid. Abdomen: Soft and not tender. Neurologic: The patient is lethargic. She is able to talk in a coherent fashion, and she can move her extremities, but she is extremely weak. Extremities: The patient has bilateral leg edema. Integument: Patient has numerous neurofibromas. LAB AND X-RAY: Today the patient's white blood cell count is up to 48,230, hemoglobin 7.2, and platelet count 411,000. Creatinine is 4.1. GFR is 11. ASSESSMENT AND PLAN: Patient has diffuse malignancy in both lungs. I doubt that she has a superimposed infection in her lungs. For now, I am going to continue with Zyvox, Levaquin, and meropenem, and I have ordered for tomorrow a CBC and a BMP, and for today, I have ordered a procalcitonin level. Also, I have ordered for today a repeat portable chest x-ray. COMORBIDITIES: The patient has a diffuse lung malignancy. She also has neurofibromatosis, gastroesophageal reflux disease, and chronic obstructive pulmonary disease. cc: Cooper Matias MD
--- NOTE | 2019-07-16 20:24 | PROVIDER PROGRESS NOTE ---
Progress Note Subjective: Voiced that she felt ok but is unable to answer questions. Objective: temperature 97.5, pulse 111, respirations 18, blood pressure 82/49, 94% on a Venturi mask. General: chronically ill white female lying in bed with no acute distress. HEENT: Normocephalic, atraumatic. Dry mucous membranes. Pupils equal and reactive. Pale conjunctiva.Trachea midline. Skin: warm and dry Neck: supple, No JVD observed Cardiovascular: S1S2, tachycardic rate and rhythm, no murmurs or gallops. Respiratory: crackles noted during expiration. Abdomen: soft, nontender, nondistended. Bowel sounds hypoactive. : non inspected Extremities: no clubbing, cyanosis, and had Trace edema noted. Neurological: alert and oriented to person. Labs: WBC 41.88, hemoglobin 9.4, hematocrit 30.9, platelet count 150, sodium 137, potassium 5.7, chloride 103, carbon dioxide 14, BUN 103, creatinine 4.6. Intake 2630, output 0. Impression: Acute kidney injury on chronic kidney disease. Likely acute ischemic tubular necrosis related to sepsis. She has had one incontinent urine episode. She is now 15L positive. CT abdomen/pelvis negative and we are awaiting renal ultrasound results to rule out obstruction. The family has decided on comfort measures only. We will sign off at this time. If we can assist in any way, please let us know.
[2019-07-16 20:26] VITALS: BP 49/41
--- NOTE | 2019-07-17 11:05 | DISCHARGE SUMMARY ---
ADMISSION DATE: 07/04/2019 DISCHARGE DATE: 07/16/2019 DATE OF EXPIRATION: 07/16/2019 DISCHARGE DIAGNOSES: 1. Acute respiratory multifactorial. 2. Metastatic lung cancer. 3. Healthcare-associated pneumonia. 4. GI bleeding. 5. Worsening renal failure. 6. Neurofibromatosis. CONSULTATIONS: 1. Dr. Pili Rosado from Oncology. 2. Dr. Mario Thornton from nephrology. 3. Dr. Cooper Matias from Infectious Disease. 4. Dr. Salomón Villanueva from GI. PROCEDURES: 1. Chest x-ray done on admission showed coarse interstitial thickening bilaterally that probably represent mild fibrotic changes, but no other definite acute pathology. 2. Abdomen and pelvis CT showed innumerable small parenchymal nodules at both lungs highly suspicious for metastatic disease from an unknown primary small left pleural effusion, heterogeneous mass of the upper pole of the right kidney that was suspicion for neoplasm. 3. Finding consistent with diffuse mixed lytic and sclerotic metastatic disease throughout the visualized skeleton. 4. Bone biopsy CT was performed successfully. 5. Chest CT showed stable CT of the chest. 6. Echocardiogram Doppler showed ejection fraction 60 to 65%. Pericardium appears mildly thickened and no evidence of tamponade. HOSPITAL COURSE: In brief, this patient was admitted initially to the hospital for GI bleeding. The patient was scoped by Dr. Mehta which finally found bleeding angiectasia in the gastric body with a stoma that was normal so this patient was monitored closely here in the hospital. A few days after she had another episode of bleeding. Apparently, she had another episode of bleeding so she was rescoped and everything was okay. Actually, GI signed off. As we mentioned before, we were able to do successful biopsy of the lung. The patient a few days before she , she started having acute respiratory failure. Her oxygen needs started getting really higher. We talked with pathology, and apparently the findings from biopsy returned to be malignancy. Also, there was a suspicion for pneumonia so this patient was placed on antibiotics but unfortunately the white cell count continues to get higher. Her oxygen needs continue to be higher. Her mentation started getting worse. Unfortunately, because the patient was not improving with multiorgan system including lung, kidneys and encephalopathy, family agreed to provide comfort care measures only. One day after we decided to do that, patient unfortunately on 07/16/2019 at 22:22 in the evening. cc: Praveen Canseco MD
== END 2019-07-16 22:22 | disposition expired | DRG 377 ==
LOC: ED 10:17 → 2N 18:19 → SUATTDRO 18:19 → 4N 07-06 09:45 → 2N 07-13 12:40 → 4N 07-16 14:09
PROVIDERS: ATTEND Internal Medicine